=== PATIENT | female | born 1955 | race Caucasian/White ===

== ENCOUNTER 2021-03-30 13:30 | Outpatient (REF) | payer OTHER, SELFPAY ==
--- NOTE | ~2021-03-30 | MM_ITS ---
EXAMINATION: MM SCREENING DIGITAL BREAST TOMOSYNTHESIS, BILATERAL CLINICAL INFORMATION: Screening. Asymptomatic. The lifetime risk of breast cancer based on the Tyrer-Cuzick Model is 6%. COMPARISON: Mammography: 03/25/2020, 03/20/2019, 03/15/2018 TECHNIQUE: Digital breast tomosynthesis is performed in both the craniocaudal and mediolateral oblique views along with computer-aided detection (CAD). Synthesized 2D images are generated from the tomosynthesis. FINDINGS: There are scattered areas of fibroglandular density (ACR BI-RADS breast composition Category b). There are no significant masses, abnormal calcifications, or other abnormalities. There is biopsy clip marker mid 12:00 left breast. The axilla and skin contours are unremarkable. No significant changes. MM/MM tomosynthesis screening BI IMPRESSION: No mammographic evidence of malignancy. ASSESSMENT: BI-RADS 1: Negative RECOMMENDATION: Routine annual mammography screening. This patient's information was entered into a reminder system with a target due date for their next mammogram.
== END 2021-03-30 13:31 | disposition home or self-care (01) ==
LOC: HO.MAMMO 13:30
PROVIDERS: Visit Provider Internal Medicine
DX: Z12.31 Encounter for screening mammogram for malignant neoplasm of breast (principal)
CPT/HCPCS: 77063; 77067

== ENCOUNTER 2021-09-08 14:27 | Outpatient (REF) | payer OTHER, SELFPAY ==
[2021-09-08 14:48] LABS: IDNOW Serial# 9DD0AD1C
[2021-09-08 14:49] LABS: COVID-19 Test Positive (Negative)
== END 2021-09-08 14:28 | disposition home or self-care (01) ==
LOC: HO.LNP 14:27
PROVIDERS: Visit Provider Internal Medicine
DX: Z20.822 Contact with and (suspected) exposure to COVID-19 (principal)
CPT/HCPCS: 87635

== ENCOUNTER 2021-09-21 06:05 | Outpatient (REF) | payer OTHER, SELFPAY ==
--- NOTE | ~2021-09-21 | XR_ITS ---
EXAMINATION: XR CHEST CLINICAL INFORMATION: Cough. Status post COVID. Left chest wall pain. Question pneumonia. COMPARISON: Chest radiograph dated 02/23/2012. TECHNIQUE: 2 views of the chest were obtained. FINDINGS: The lungs are clear. The cardiomediastinal silhouette is normal in size. There is no pleural effusion or pneumothorax. No acute osseous abnormality. XR/XR chest 2V IMPRESSION: No acute cardiopulmonary findings.
[2021-09-21 06:42] LABS: MANUAL DIFF FLAG NO
[2021-09-21 07:19] LABS: Basophils Absolute Auto 0.1 X10*3/uL (0.0-0.2); Basophils Percent Auto 1.2 % (0-2); Eosinophils Absolute Auto 0.1 X10*3/uL (0.0-0.4); Eosinophils Percent Auto 1.7 % (0-4); Hematocrit 44.9 % (37.0-47.0); Hemoglobin 14.9 g/dl (12.0-16.0); Imm Gran Abs Auto 0.01 X10*3/uL (0.00-0.03); Imm Gran Pct Auto 0.2 % (0.0-0.4); Lymphocytes Absolute Auto 1.9 X10*3/uL (1.2-4.9); Lymphocytes Percent Auto 32.2 % (20-40); Mean Corpuscular HGB Conc 33.2 g/dl (31.0-35.0); Mean Corpuscular Hemoglobin 31.6 pg (27.0-33.0); Mean Corpuscular Volume 95.3 fL (80.0-98.0); Mean Platelet Volume 10.3 fL (9.4-12.3); Monocytes Absolute Auto 0.7 X10*3/uL (0.1-1.2); Monocytes Percent Auto 11.3 % (2-11); Neutrophils Absolute Auto 3.2 x10*3/uL (2.0-8.3); Neutrophils Percent Auto 53.4 % (45-73); Platelet Count 371 X10*3/uL (160-400); Red Blood Count 4.71 X10*6/uL (4.20-5.50); Red Cell Distribution Width 13.9 % (11.0-16.0)
[2021-09-21 07:39] LABS: Alanine Aminotransferase 58 U/L (0-31); Albumin Level 4.2 g/dL (3.5-5.0); Alkaline Phosphatase 79 U/L (39-117); Anion Gap 13 (12-20); Aspartate Amino Transferase 37 U/L (5-31); Bilirubin Total 0.5 mg/dL (0.0-1.0); Blood Urea Nitrogen 17 mg/dL (9-16); Calcium 9.7 mg/dL (8.4-10.2); Carbon Dioxide 22 mmol/L (22-29); Chloride 108 mmol/L (96-108); Cholesterol 246 mg/dL; Estimated Glomerular Filt Rate > 60; Glucose Random 93 mg/dL (60-115); HDL Cholesterol 52 mg/dL; LDL Cholesterol Calculated 161 mg/dl; Potassium 4.2 mmol/L (3.3-5.1); Sodium 139 mmol/L (135-145); Total Protein 7.4 g/dL (6.5-8.0); Triglycerides 165 mg/dL
== END 2021-09-21 06:06 | disposition home or self-care (01) ==
LOC: HO.LAB 06:05
PROVIDERS: PCP Internal Medicine; Visit Provider Internal Medicine
DX: R05.9 Cough, unspecified (principal); E78.00 Pure hypercholesterolemia, unspecified; R07.89 Other chest pain; Z86.16 Personal history of COVID-19
CPT/HCPCS: 36415; 71046; 80053; 80061; 85025; 86140

== ENCOUNTER 2021-10-28 08:22 | Outpatient (REF) | payer OTHER, SELFPAY ==
--- NOTE | ~2021-10-28 | MM_ITS ---
EXAMINATION: MM DIAGNOSTIC DIGITAL BREAST TOMOSYNTHESIS, LEFT US DIAGNOSTIC ULTRASOUND BREAST, LEFT CLINICAL INFORMATION: Burning pain upper outer left breast towards axilla since August. No discharge. The lifetime risk of breast cancer based on the Tyrer-Cuzick Model is 6%. COMPARISON: Mammography: 03/30/2021, 03/25/2020, 03/20/2019, 03/15/2018 TECHNIQUE: Digital breast tomosynthesis is performed in both the craniocaudal and mediolateral oblique views along with computer-aided detection (CAD). Synthesized 2D images are generated from the tomosynthesis. Ultrasound left breast is targeted to the 11:00 to 3:00 position as well as the axilla. Grayscale imaging and color Doppler are performed without and with harmonics. FINDINGS: There are scattered areas of fibroglandular density (ACR BI-RADS breast composition Category b). There are no significant masses, abnormal calcifications, or other abnormalities. Parenchymal pattern is similar to prior studies. There is no skin thickening or coarsening of the Benton's ligaments. No lymphadenopathy. There are no significant changes. Ultrasound demonstrates no cystic or solid mass or architectural abnormality. No focal duct ectasia. No skin thickening or edema tracking in soft tissue planes. No adenopathy. Results are discussed with the patient at time of visit. MM/MM tomosynthesis diagnostic LT IMPRESSION: No mammographic evidence of malignancy or inflammatory changes. Unremarkable left breast ultrasound. ASSESSMENT: BI-RADS 1: Negative RECOMMENDATION: 1. Patient's left breast pain should be managed based on the clinical impression. 2. Otherwise, routine annual screening mammography. This patient's information was entered into a reminder system with a target due date for their next mammogram.
== END 2021-10-28 08:23 | disposition home or self-care (01) ==
LOC: HO.MAMMO 08:22
PROVIDERS: Visit Provider Internal Medicine
DX: R92.2 Inconclusive mammogram (principal); N63.22 Unspecified lump in the left breast, upper inner quadrant; N63.25 Unspecified lump in the left breast, overlapping quadrants
CPT/HCPCS: 76642; 77061; 77065

== ENCOUNTER 2021-11-08 06:05 | Outpatient (REF) | payer OTHER, SELFPAY ==
[2021-11-08 06:18] LABS: MANUAL DIFF FLAG NO
[2021-11-08 06:28] LABS: Basophils Absolute Auto 0.1 X10*3/uL (0.0-0.2); Basophils Percent Auto 0.7 % (0-2); Eosinophils Absolute Auto 0.1 X10*3/uL (0.0-0.4); Eosinophils Percent Auto 1.7 % (0-4); Hematocrit 46.2 % (37.0-47.0); Hemoglobin 14.9 g/dl (12.0-16.0); Imm Gran Abs Auto 0.02 X10*3/uL (0.00-0.03); Imm Gran Pct Auto 0.3 % (0.0-0.4); Lymphocytes Absolute Auto 2.8 X10*3/uL (1.2-4.9); Lymphocytes Percent Auto 38.5 % (20-40); Mean Corpuscular HGB Conc 32.3 g/dl (31.0-35.0); Mean Corpuscular Hemoglobin 31.2 pg (27.0-33.0); Mean Corpuscular Volume 96.7 fL (80.0-98.0); Mean Platelet Volume 10.3 fL (9.4-12.3); Monocytes Absolute Auto 0.8 X10*3/uL (0.1-1.2); Monocytes Percent Auto 10.5 % (2-11); Neutrophils Absolute Auto 3.5 x10*3/uL (2.0-8.3); Neutrophils Percent Auto 48.3 % (45-73); Platelet Count 327 X10*3/uL (160-400); Red Blood Count 4.78 X10*6/uL (4.20-5.50); Red Cell Distribution Width 14.2 % (11.0-16.0); White Blood Count 7.1 X10*3/uL (4.8-10.8)
[2021-11-08 06:52] LABS: Alanine Aminotransferase 99 U/L (0-31); Albumin Level 4.1 g/dL (3.5-5.0); Alkaline Phosphatase 82 U/L (39-117); Anion Gap 11 (12-20); Aspartate Amino Transferase 73 U/L (5-31); Bilirubin Total 0.3 mg/dL (0.0-1.0); Blood Urea Nitrogen 17 mg/dL (9-16); Calcium 9.8 mg/dL (8.4-10.2); Carbon Dioxide 27 mmol/L (22-29); Chloride 107 mmol/L (96-108); Estimated Glomerular Filt Rate > 60; Glucose Random 101 mg/dL (60-115); Sodium 140 mmol/L (135-145); Total Protein 7.1 g/dL (6.5-8.0)
== END 2021-11-08 06:06 | disposition home or self-care (01) ==
LOC: HO.LAB 06:05
PROVIDERS: PCP Internal Medicine; Visit Provider Internal Medicine
DX: R07.9 Chest pain, unspecified (principal)
CPT/HCPCS: 36415; 80053; 85025

== ENCOUNTER 2021-11-10 08:49 | Outpatient (REF) | payer OTHER, SELFPAY ==
--- NOTE | ~2021-11-10 | MR_ITS ---
EXAMINATION: MR BREAST WITHOUT AND WITH CONTRAST, BILATERAL CLINICAL INFORMATION: History of left breast pain. Remote history of papilloma status post excision. COMPARISON: No previous breast MRI TECHNIQUE: Imaging was performed with a dedicated breast coil. Prior to the administration of contrast, bilateral axial T1 and bilateral axial T2 weighted sequences were obtained. After the uneventful administration of?7 mL of Gadavist, dynamic contrast-enhanced VIBRANT series through the breasts in the axial plane were performed. Subtracted images were performed and reviewed. A delayed sagittal sequence through both breasts was acquired. Additionally, CAD post-processing, including maximum intensity projections, 3-D reconstructions and kinetic analysis, were performed an independent workstation and reviewed by the interpreting radiologist is a portion of this exam. FINDINGS: The patient's fibroglandular tissue demonstrates minimal background enhancement. LEFT BREAST: Postsurgical scarring in the retroareolar region. No suspicious masslike or non-masslike enhancement. No abnormal skin thickening or nipple retraction. No abnormal architectural distortion. Review of the T2 weighted images demonstrates no fibrocystic changes or dilated ducts. Review of kinetic images reveals no additional findings. RIGHT BREAST: No suspicious masslike or non-masslike enhancement. No abnormal skin thickening or nipple retraction. No abnormal architectural distortion. Review of the T2 weighted images demonstrates no fibrocystic changes or dilated ducts. Review of kinetic images reveals no additional findings. There is no suspicious internal mammary chain or axillary adenopathy. Limited views of the chest and abdomen are unremarkable. MR/MR breast BI wo/w con IMPRESSION: No MR specific evidence of malignancy. Normal left axilla. No MRI explanation for left breast pain. ASSESSMENT: LEFT BREAST: BI-RADS 1-Negative RIGHT BREAST: BI-RADS 1-Negative RECOMMENDATIONS: Clinical follow-up.
== END 2021-11-10 08:50 | disposition home or self-care (01) ==
LOC: HO.MRI 08:49
PROVIDERS: PCP Internal Medicine; Visit Provider Internal Medicine
DX: D42.9 Neoplasm of uncertain behavior of meninges, unspecified (principal)
CPT/HCPCS: 77049; A9585

== ENCOUNTER 2021-11-14 09:33 | Outpatient (REF) | payer OTHER, SELFPAY ==
--- NOTE | ~2021-11-14 | US_ITS ---
EXAMINATION: US ABDOMEN COMPLETE CLINICAL INFORMATION: Elevated LFTs. COMPARISON: None TECHNIQUE: Real-time imaging of the abdominal viscera. FINDINGS: PANCREAS: Not well visualized. ABDOMINAL AORTA: The proximal, mid, and distal segments are normal in caliber. INFERIOR VENA CAVA: Not well visualized LIVER: Liver echotexture is slightly increased. The liver is normal in size. The liver contour is normal. No focal hepatic lesion. There is no intrahepatic biliary duct dilatation seen. GALLBLADDER: Normal. The gallbladder is physiologically distended without evidence of stones, sludge, polyps, wall thickening or pericholecystic fluid. COMMON BILE DUCT: Normal in caliber measuring 0.3 cm in diameter. RIGHT KIDNEY: Normal. No hydronephrosis. No renal calculi or focal parenchymal lesions. The kidney measures 9.2 cm in maximum dimension. LEFT KIDNEY: There is a 7 mm echogenic lesion in the lower pole. No hydronephrosis. No renal calculi or focal parenchymal lesions. The kidney measures 9.4 cm in maximum dimension. SPLEEN: Normal. The spleen measures 7.3 cm in maximum dimension. FREE FLUID: None. US/US abdomen complete IMPRESSION: Slightly echogenic liver. Limited visualization of the pancreas and IVC. 7 mm echogenic lesion in the left kidney. This may represent a benign angiomyolipoma. Follow-up CT or MRI of the kidney recommended for confirmation.
== END 2021-11-14 09:34 | disposition home or self-care (01) ==
LOC: HO.US 09:33
PROVIDERS: Visit Provider Internal Medicine
DX: R74.01 Elevation of levels of liver transaminase levels (principal)
CPT/HCPCS: 76700

== ENCOUNTER 2021-12-30 06:09 | Outpatient (REF) | payer OTHER, SELFPAY ==
[2021-12-30 08:12] LABS: Alanine Aminotransferase 57 U/L (0-31); Albumin Level 3.9 g/dL (3.5-5.0); Alkaline Phosphatase 85 U/L (39-117); Anion Gap 12 (12-20); Aspartate Amino Transferase 43 U/L (5-31); Bilirubin Total 0.3 mg/dL (0.0-1.0); Blood Urea Nitrogen 18 mg/dL (9-16); Calcium 9.5 mg/dL (8.4-10.2); Carbon Dioxide 25 mmol/L (22-29); Chloride 108 mmol/L (96-108); Estimated Glomerular Filt Rate > 60; Glucose Random 91 mg/dL (60-115); Iron 90 mcg/dL (30-160); Percent Iron Saturation 30 % (15-50); Potassium 4.6 mmol/L (3.3-5.1); Sodium 140 mmol/L (135-145); Total Iron Binding Capacity 297 mcg/dL (228-428); Unsaturated Iron Binding 207 ug/dL
[2021-12-30 08:13] LABS: HBS Num1 0.67 mIU/mL (0-7.99); ~HepC Num1 0.11 S/CO (0.00-0.79); ~Hepatitis B Surface Antibody NONREACTIVE (Nonreactive); ~Hepatitis C Antibody Nonreactive (Nonreactive)
[2021-12-30 08:14] LABS: Ferritin 365 ng/mL (10-250)
== END 2021-12-30 06:10 | disposition home or self-care (01) ==
LOC: HO.LAB 06:09
PROVIDERS: PCP Internal Medicine; Visit Provider Internal Medicine
DX: R79.89 Other specified abnormal findings of blood chemistry (principal); Z83.49 Family history of other endocrine, nutritional and metabolic diseases
CPT/HCPCS: 36415; 80053; 82728; 83540; 86706; 86803

== ENCOUNTER 2022-03-28 14:15 | Outpatient (REF) | payer OTHER, SELFPAY | END 2022-03-28 14:16 | disposition home or self-care (01) | LOC: HO.MAMMO 14:15 | PROVIDERS: Visit Provider Internal Medicine | DX: Z13.89 Encounter for screening for other disorder (principal) ==

== ENCOUNTER 2022-04-03 14:21 | Outpatient (REF) | payer OTHER, SELFPAY ==
--- NOTE | ~2022-04-03 | MM_ITS ---
EXAMINATION: MM SCREENING DIGITAL BREAST TOMOSYNTHESIS, BILATERAL CLINICAL INFORMATION: Screening. Asymptomatic. The lifetime risk of breast cancer based on the Tyrer-Cuzick Model is 6%. COMPARISON: Mammography: 10/28/2021, 03/30/2021, 03/25/2020, 03/20/2019; MR breasts 11/10/2021. TECHNIQUE: Digital breast tomosynthesis is performed in both the craniocaudal and mediolateral oblique views along with computer-aided detection (CAD). Synthesized 2D images are generated from the tomosynthesis. FINDINGS: There are scattered areas of fibroglandular density (ACR BI-RADS breast composition Category b). There are no significant masses, abnormal calcifications, or other abnormalities. Parenchymal pattern is similar to prior studies. There is a biopsy clip marker again seen mid 12:00 left breast. The axilla and skin contours are unremarkable. MM/MM tomosynthesis screening BI IMPRESSION: No mammographic evidence of malignancy. ASSESSMENT: BI-RADS 1: Negative RECOMMENDATION: Routine annual mammography screening. This patient's information was entered into a reminder system with a target due date for their next mammogram.
== END 2022-04-03 14:22 | disposition home or self-care (01) ==
LOC: HO.MAMMO 14:21
PROVIDERS: PCP Internal Medicine; Visit Provider Internal Medicine
DX: Z12.31 Encounter for screening mammogram for malignant neoplasm of breast (principal)
CPT/HCPCS: 77063; 77067

== ENCOUNTER 2023-03-20 12:41 | Outpatient (REF) | payer MEDICARE, SELFPAY ==
[2023-03-20 13:19] LABS: MANUAL DIFF FLAG NO
[2023-03-20 13:27] LABS: Basophils Absolute Auto 0.1 X10*3/uL (0.0-0.2); Basophils Percent Auto 1.1 % (0-2); Eosinophils Percent Auto 0.6 % (0-4); Hematocrit 46.1 % (37.0-47.0); Hemoglobin 15.3 g/dl (12.0-16.0); Imm Gran Abs Auto 0.01 X10*3/uL (0.00-0.03); Imm Gran Pct Auto 0.2 % (0.0-0.4); Lymphocytes Absolute Auto 2.2 X10*3/uL (1.2-4.9); Lymphocytes Percent Auto 34.5 % (20-40); Mean Corpuscular HGB Conc 33.2 g/dl (31.0-35.0); Mean Corpuscular Hemoglobin 31.1 pg (27.0-33.0); Mean Corpuscular Volume 93.7 fL (80.0-98.0); Mean Platelet Volume 10.3 fL (9.4-12.3); Monocytes Absolute Auto 0.6 X10*3/uL (0.1-1.2); Monocytes Percent Auto 9.8 % (2-11); Neutrophils Absolute Auto 3.5 x10*3/uL (2.0-8.3); Neutrophils Percent Auto 53.8 % (45-73); Platelet Count 304 X10*3/uL (160-400); Red Blood Count 4.92 X10*6/uL (4.20-5.50); Red Cell Distribution Width 13.4 % (11.0-16.0); White Blood Count 6.4 X10*3/uL (4.8-10.8)
[2023-03-20 14:20] LABS: Alanine Aminotransferase 25 U/L (0-31); Alkaline Phosphatase 82 U/L (39-117); Anion Gap 8 (12-20); Aspartate Amino Transferase 22 U/L (5-31); Bilirubin Total 0.3 mg/dL (0.0-1.0); Blood Urea Nitrogen 17 mg/dL (9-16); C Reactive Protein < 0.10 mg/dL (< or = 0.50); Calcium 9.4 mg/dL (8.4-10.2); Carbon Dioxide 29 mmol/L (22-29); Chloride 106 mmol/L (96-108); Estimated Glomerular Filt Rate > 60; Ferritin 360 ng/mL (10-250); Glucose Random 107 mg/dL (60-115); Iron 98 mcg/dL (30-160); Percent Iron Saturation 37 % (15-50); Potassium 4.2 mmol/L (3.3-5.1); Sodium 139 mmol/L (135-145); Total Iron Binding Capacity 262 mcg/dL (228-428); Total Protein 7.6 g/dL (6.5-8.0); Unsaturated Iron Binding 164 ug/dL
== END 2023-03-20 12:42 | disposition home or self-care (01) ==
LOC: HO.10HDL 12:41
PROVIDERS: Visit Provider Internal Medicine
DX: R21 Rash and other nonspecific skin eruption (principal); R79.89 Other specified abnormal findings of blood chemistry; Z83.49 Family history of other endocrine, nutritional and metabolic diseases
CPT/HCPCS: 36415; 80053; 82728; 83540; 85025; 86140

== ENCOUNTER 2023-04-05 12:46 | Outpatient (REF) | payer MEDICARE, SELFPAY ==
--- NOTE | ~2023-04-05 | MM_ITS ---
EXAMINATION: MM SCREENING DIGITAL BREAST TOMOSYNTHESIS, BILATERAL CLINICAL INFORMATION: Screening. Asymptomatic. COMPARISON: Mammography: This study is compared with prior exams dating back to 2019. TECHNIQUE: Digital breast tomosynthesis is performed in both the craniocaudal and mediolateral oblique views along with computer-aided detection (CAD). Synthesized 2D images are generated from the tomosynthesis. FINDINGS: There are scattered areas of fibroglandular density (ACR BI-RADS breast composition Category b). There are no significant masses, abnormal calcifications, or other abnormalities. There is tissue marker in the superior aspect of the left breast from prior benign stereotactic biopsy. MM/MM tomosynthesis screening BI IMPRESSION: No mammographic evidence of malignancy. ASSESSMENT: BI-RADS BI-RADS 2 - Benign Findings RECOMMENDATION: Routine annual mammography screening. 1 year F/U This examination should not preclude the clinical evaluation of a suspicious palpable abnormality. This patient's information was entered into a reminder system with a target due date for their next mammogram.
== END 2023-04-05 12:47 | disposition home or self-care (01) ==
LOC: HO.MAMMO 12:46
PROVIDERS: PCP Internal Medicine; Visit Provider Internal Medicine
DX: Z12.31 Encounter for screening mammogram for malignant neoplasm of breast (principal)
CPT/HCPCS: 77063; 77067

== ENCOUNTER → 2023-04-05 13:00 | Outpatient (BNV) | payer MEDICARE, SELFPAY | PROVIDERS: PCP Internal Medicine; Visit Provider Radiology Diagnostic Radiology | DX: Z12.31 Encounter for screening mammogram for malignant neoplasm of breast (principal) | CPT/HCPCS: 77063; 77067 ==

== ENCOUNTER 2024-04-10 12:40 | Outpatient (REF) | payer MEDICARE, SELFPAY ==
--- NOTE | ~2024-04-10 | MM_ITS ---
EXAMINATION: MM SCREENING DIGITAL BREAST TOMOSYNTHESIS, BILATERAL CLINICAL INFORMATION: Screening. Asymptomatic. COMPARISON: Mammography: This study is compared with prior exams dating back to 2019. TECHNIQUE: Digital breast tomosynthesis is performed in both the craniocaudal and mediolateral oblique views along with computer-aided detection (CAD). Synthesized 2D images are generated from the tomosynthesis. FINDINGS: There are scattered areas of fibroglandular density (ACR BI-RADS breast composition Category b). There are no significant masses, abnormal calcifications, or other abnormalities. There is a tissue marker and superior aspect the left breast from prior benign biopsy. MM/MM tomosynthesis screening BI IMPRESSION: No mammographic evidence of malignancy. ASSESSMENT: BI-RADS BI-RADS 2 - Benign Findings RECOMMENDATION: Routine annual mammography screening. 1 year F/U This examination should not preclude the clinical evaluation of a suspicious palpable abnormality. This patient's information was entered into a reminder system with a target due date for their next mammogram. Electronically signed by: Key Carrillo MD 05/10/2024 02:46 PM EDT
== END 2024-04-10 12:41 | disposition home or self-care (01) ==
LOC: HO.MAMMO 12:40
PROVIDERS: PCP Internal Medicine; Visit Provider Internal Medicine
DX: Z12.31 Encounter for screening mammogram for malignant neoplasm of breast (principal)
CPT/HCPCS: 77063; 77067

== ENCOUNTER → 2024-04-10 13:00 | Outpatient (BNV) | payer MEDICARE, SELFPAY | PROVIDERS: PCP Internal Medicine; Visit Provider Radiology Diagnostic Radiology | DX: Z12.31 Encounter for screening mammogram for malignant neoplasm of breast (principal) | CPT/HCPCS: 77063; 77067 ==

== ENCOUNTER 2024-06-24 14:36 | Outpatient (REF) | payer MEDICARE, SELFPAY ==
[2024-06-29 06:13] LABS: HPV mRNA E6/E7 Not Detected (Not Detected)
== END 2024-06-24 14:37 | disposition home or self-care (01) ==
LOC: HO.LNP 14:36
PROVIDERS: PCP Internal Medicine; Visit Provider Advanced Practice Midwife
DX: Z01.419 Encounter for gynecological examination (general) (routine) without abnormal findings (principal); N95.1 Menopausal and female climacteric states; N95.2 Postmenopausal atrophic vaginitis
CPT/HCPCS: 87624; 88175; 99387

== ENCOUNTER 2024-06-24 14:36 | Outpatient (AMB) | payer MEDICARE, SELFPAY ==
[2024-06-24 14:44] VITALS: BMI 29.1
--- NOTE | 2024-06-24 14:44 | A.OFFVIS_ITS ---
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 She is doing well with concerns. History of left sided pain radiating to the pelvis with lifting, since resolved with resting. Attempting to eat a healthy diet with multivitamins, and stays active with exercise-yardwork. Currently occasionally sexually active, reports vaginal dryness, pain, spotting with prior intimacy. STI testing offered; she declines. Last pap smear; 2017. Normal Pap history. Last mammogram; 2023. History left breast papilloma removed. Colonoscopy is UTD. Denies any family history of breast, ovarian or colon cancer. [facility] Medical History (Updated 06/24/24 @ 15:32 by Radha Taylor CNM) Vaginal atrophy Fatty liver Surgical History H/O breast surgery Family History Mother Adopted Social History Alcohol intake: never Patient Tobacco Use Status: Never used Tobacco Sexually active: No Female Reproductive History Menstrual Menopause type: natural Total pregnancies: 2 Full term: 2 Number of Living Children: 2 Date of last pap smear: 03/26/18 (neg pap and hpv) History of abnormal pap smear: Yes (03/12 ascus) Date of Mammogram: 04/10/24 (Birad 2) Review of Systems Const All systems reviewed & are unremarkable except as noted in HPI and below Reports as per HPI Eyes Reports no additional complaints ENT Reports no additional complaints Card Reports no additional complaints Resp Reports no additional complaints GI Reports as per HPI and Reports no additional complaints Reports as per HPI Musc Reports no additional complaints Skin/Breast Reports as per HPI Neuro Reports no additional complaints Psych Reports no additional complaints Endo Reports no additional complaints Pankaj/Lymph Reports no additional complaints Aller/Immun Reports no additional complaints Physical Exam Vital Signs: BMI result Body Mass Index 29.1 Const General: cooperative, healthy appearing, no acute distress, well developed and alert Orientation/consciousness: patient oriented x3 HEENT Head: Yes normal to inspection Eyes General: appearance normal, both eyes and all related structures Neck Neck: Yes normal visual inspection Thyroid: Thyroid normal Chest Other: Scar left areola Chest palpation & inspection: normal inspection of the chest and other (no puckering, dimpling, peau de orange, retraction, discharge, masses) Breast/axilla inspection: normal inspection of the breasts Breast/axilla palpation: normal palpation of the breasts Resp Effort & Inspection: normal respiratory effort GI Inspection: Yes normal to inspection Palpation (GI): Soft to palpation Rectal Exam - Female: deferred General: Yes bladder normal to palpation External Female Exam: normal external appearance and normal appearance of the urethra Speculum Exam - Vagina: normal palpation and vagina atrophic (Moderate) Speculum Exam - Cervix: normal palpation and Other cervical findings present (Prominent anterior surface, appears likes post surgical, bled w/pap) Bimanual exam- vagina & uterus: normal bimanual exam, normal palpation, uterine size normal, bladder normal to palpation, normal palpation and non-tender Bimanual Exam- Adnexa, other: no masses Skin General skin exam: no rashes or lesions noted Rashes: no rashes Neuro General: patient oriented x3 Cognition (Neuro): normal cognition Extrem General: Yes normal to inspection Psych Attitude: cooperative Thought process: Normal thought process present Assessment & Plan Assessment & Plan (1) Encounter for well woman exam with routine gynecological exam: Code(s): Z01.419 - Encounter for gynecological examination (general) (routine) without abnormal findings Category: Medical (2) Menopausal state: Code(s): N95.1 - Menopausal and female climacteric states Category: Medical (3) Vaginal atrophy: Code(s): N95.2 - Postmenopausal atrophic vaginitis Category: Medical Plan Discussed: Current recommendations for pap smears per ASCCP guidelines. Pap screening completed. Breast awareness, periodic self breast exams and yearly mammogram. Maintain a healthy lifestyle, well balanced diet including Calcium 1,200 mg and Vitamin D 600 IU daily, and routine exercise. Menopausal.org handout given on HRT, discuss vaginal atrophy in effects with dyspareunia, vaginal dryness, pain, spotting. Initiate treatment with Replens moisturizer reviewed use. The role vaginal estrogen-she prefers nonhormonal treatment therapy at this point. Contact the office with any postmenopausal bleeding. DEXA scan ordered. Patient verbalizes understanding and agrees to the plan of care. She was given opportunity to ask questions and all questions were answered to the best of my ability. RTO in 1 year for annual building code inspector exam. This note is constructed using voice recognition software. While every effort has been made to ensure accuracy, advisory internship errors may have been included. Orders: Orders PAP + HPV E6/E7 rfx 18/45 Today Z01.419 - Encounter for gynecological examination (general) (routine) without abnormal findings XR DEXA axial skeleton Today N95.1 - Menopausal and female climacteric states Coding Level of Care Code New Pt Prev Care >65yr (46629) Diagnoses Encounter for well woman exam with routine gynecological exam Z01.419 Menopausal state N95.1 Vaginal atrophy N95.2
== END 2024-06-24 15:58 | disposition home or self-care (01) ==
LOC: HO.HWS 14:37
PROVIDERS: PCP Internal Medicine; Visit Provider Advanced Practice Midwife
DX: Z01.419 Encounter for gynecological examination (general) (routine) without abnormal findings (principal); N95.1 Menopausal and female climacteric states; N95.2 Postmenopausal atrophic vaginitis
CPT/HCPCS: 99387

== ENCOUNTER 2024-07-22 13:17 | Outpatient (REF) | payer MEDICARE, SELFPAY ==
--- NOTE | ~2024-07-22 | MM_ITS ---
EXAMINATION: BONE DENSITOMETRY CLINICAL INDICATION: Menopausal and female climacteric states. COMPARISON: Baseline BD dated 11/07/2012. TECHNIQUE: Using a [employer] DXA System (software version: 13.1) manufactured by [employer], dual-energy x-ray absorptiometry was performed of the lumbar spine and left hip. The images are of good technical quality. Summary results are attached. FINDINGS: LEFT FEMUR, NECK: Current: BMD 0.982 g/cm2, Z-score 1.1, T-score -0.4, normal. Baseline: BMD 1.069 g/cm2. LEFT FEMUR, TOTAL: Current: BMD 1.016 g/cm2, Z-score 1.3, T-score 0.1, normal, 11.0% decrease from baseline (<5% change is not significant). Baseline: BMD 1.141 g/cm2. AP SPINE L3-L4 (excluding L1 and L2): The data of L1-L4 has been changed to exclude the L1 and L2 vertebral bodies, because degenerative sclerosis at these levels may cause overestimation of lumbar spine density. Current: BMD 1.005 g/cm2, Z-score 0.0, T-score -1.6, osteopenia, 15.3% decrease from baseline (<5% change is not significant). Baseline: BMD 1.187 g/cm2. IDENTIFIED RISK FACTORS: Menopause, history of fracture (adult), secondary osteoporosis (chronic liver disease), anticonvulsants. HISTORY OF FRACTURE: Other. MEDICATIONS: Calcium. MM/XR DEXA axial skeleton IMPRESSION: 1. DIAGNOSIS: Osteopenia based on the lowest T-score value of -1.6 in the lumbar spine applying World Health Organization criteria. 2. 10-YEAR FRACTURE RISK PREDICTION, FRAX: Major osteoporotic fracture (clinical spine, forearm, hip or shoulder) 12.1%. Hip fracture 0.6%. 3. Treatment Recommendations: NOF guidelines recommend consideration for treatment in postmenopausal women and men age 50 and older presenting with the following: -A hip or vertebral (clinical or morphometric) fracture. -T-score less than or equal to -2.5 at the femoral neck or spine after appropriate evaluation to exclude secondary causes. -Low bone mass at the hip or spine and a 10-year fracture probability by FRAX of greater than or equal to 3% for hip fracture or greater than or equal to 20% for major osteoporotic fracture based on the [place] adapted WHO algorithm. 4. Other Recommendations: All treatment decisions require clinical judgment and consideration of individual patient factors, including patient preferences, comorbidities, previous drug use, risk factors not captured in the FRAX model (e.g. frailty, falls, vitamin D deficiency, increased bone turnover, interval significant decline in bone density) and possible under or overestimation of fracture risk by FRAX. Additional medical evaluation for secondary cause of low bone mineral density may be appropriate. FUTURE SCAN RECOMMENDATION: People with diagnosed cases of osteoporosis or at high risk for fracture should have regular bone mineral density tests. For patients eligible for Medicare, routine testing is allowed once every 2 years. The testing frequency can be increased to one year for patients who have rapidly progressing disease, those who are receiving or discontinuing medical therapy to restore bone mass, or have additional risk factors. Electronically signed by: Marco Antonio Lloyd MD 07/28/2024 08:14 PM TORIBIO TEMPLE
== END 2024-07-22 13:18 | disposition home or self-care (01) ==
LOC: HO.MAMMO 13:17
PROVIDERS: PCP Internal Medicine; Visit Provider Advanced Practice Midwife
DX: Z13.820 Encounter for screening for osteoporosis (principal); N95.1 Menopausal and female climacteric states
CPT/HCPCS: 77080

== ENCOUNTER 2024-12-29 15:10 | Outpatient (AMB) | payer MEDICARE, SELFPAY ==
[2024-12-29 15:13] VITALS: BP 120/74; PULSE 61; RESP 15; TEMP 36.3; O2SAT 99; BMI 29.9
--- NOTE | 2024-12-29 15:13 | MHC.PC.OV ---
Vital Signs 12/29/24 15:13 Height 5 ft Weight 69.4 kg BMI 29.9 BP 120/74 Respiration 15 Pulse 61 Pulse Source Pulse Oximeter Temp 97.4 F Temp Source Oral Pulse Oximetry (%) 99 Oxygen Delivery Method Room Air Intake Visit Reasons: Inflammation Technician Required: No Accompanied by: Self / Same As Patient Allergies dog dander Allergy (Unknown, Verified 12/29/24 15:14) Unknown horse dander Allergy (Unknown, Verified 12/29/24 15:14) Unknown mold Allergy (Unknown, Uncoded 06/24/24 14:50) Unknown Tobacco use date assessed: 12/29/24 Fall risk assessment: No Falls in past year Last assessed Fall Risk: 12/29/24 Dental Screening Dental Screen Date: 12/29/24 Did you have a dental visit in the last 12 months?: Yes Did you have a dental problem in the last 6 months where you did not have access to dental care?: No Was dental information given to patient?: Patient has dentist HPI HPI Comments History of Present Illness Details History of Present Illness The patient is a 69-year-old female presenting with persistent left-sided thoracic pain and burning sensation. The symptoms started six weeks ago and are reminiscent of a previous episode diagnosed as possible costochondritis vs internal shingles. During that time, internal shingles was also considered, and treatment with gabapentin was initiated to some effect. The current presentation involves pain primarily affecting the left side, with a burning sensation following a band-like pattern under the breast in dermatomal distributation affecting the left side only. The pain worsened upon physical activities, including sitting or carrying loads; however, there is a lack of any observable rash, and the pain persists without significant relief through positional changes or activity modifications. Despite undergoing vaccination for shingles nearly two years ago, the patient cites no history of shingles. Pain severity is around 6 out of 10 and aggravates during daily activities despite any notable breathing or sensory deficits. 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 Further imaging was advised Review of Systems - Musculoskeletal: Reports left-sided rib pain. - Neurological: Reports burning discomfort, denies numbness or tingling. - Respiratory: Denies shortness of breath. - Dermatological: Denies rash. Vital Signs reviewed Health Maintenance - Shingles vaccine received approximately two years ago. - Recommended follow-up imaging for left kidney observation. Physical Exam Constitutional: Awake and alert, no apparent distress Heart: RRR, S1S2, no murmurs, no edema Lungs: CTA bilaterally, no wheezing, occasional sharp pain not necessarily when taking a deep breath Extremities: No calf tenderness, yesterday arm was a little bit sore Skin: Warm and dry, no rash observed Neuro: Alert and oriented x 3, no numbness or tingling in hands or feet, tenderness noted in the rib area on the left side Assessment and Plan 1. Intercostal neuralgia Etiology unclear. Possible internal shingles recurrence though less likely give shingles vaccine. However, in the past had good response to gabapentin. Gabapentin at low-dose titration will resume. Use of analgesics NSAIDs/acetaminophen is advised, mindful of liver concerns. Continuing assessment for management efficacy is paramount. 2. Fatty Liver Ensure cautious use of analgesics given hepatic status, promote monitoring of liver functions. 4. Left Kidney Observation CT imaging is planned for assessment and characterization of the previously observed anomaly, informing additional directives as needed. Patient was informed and verbally consented to the use of an ambient scribe for clinic note documentation during this visit. Discussion Notes Continuity in gabapentin therapy for thoracic pain rests on historical control. The possibility of postherpetic neuralgia merits sustained gabapentin with lack of rash verified. Given hepatic limitations, medication tolerance must be a core factor. Recent kidney observation necessitates clarity; hence a CT is prioritized. Patient consent for imaging was obtained, with symptom-focused guidance rendered. Patient Instructions - Continue taking gabapentin as prescribed. - Use Tylenol or Aleve in moderation for pain relief. - Schedule a CT scan for kidney evaluation. - Monitor for new symptoms like rash or fever. - Avoid heavy lifting and strenuous activities. - Follow up in six weeks or sooner if symptoms worsen. - Rest as needed to manage pain. REPLACED BY [facility] Medical History (Updated 12/30/24 @ 09:24 by RENA Gamboa) Vaginal atrophy Fatty liver Surgical History H/O breast surgery Family History (Updated 12/29/24 @ 15:40 by BENITO Miranda) Mother Adopted Father Bladder cancer Hemochromatosis Social History (Reviewed 12/29/24 @ 15:14 by CHENTE Bhatt Housing: House Alcohol intake: never Patient Tobacco Use Status: Former Tobacco user e-Cigarette/Vaping Use: Never Used service: No Current occupational status: retired Cognitive needs: No Hearing needs: No Vision needs: Yes (Rx glasses) Questionnaire PHQ-9 Over the last 2 weeks, how often have you been bothered by any of the following problems? 1. Little interest or pleasure in doing things: not at all 2. Feeling down, depressed, or hopeless: not at all 3. Trouble falling or staying asleep, or sleeping too much: not at all 4. Feeling tired or having little energy: not at all 5. Poor appetite or overeating: not at all 6. Feeling bad about yourself - or that you are a failure or have let yourself or your family down: not at all 7. Trouble concentrating on things, such as reading the newspaper or watching television: not at all 8. Moving or speaking so slowly that other people could have noticed. Or the opposite - being so fidgety or restless that you have been moving around a lot more than usual: not at all 9. Thoughts that you would be better off or of hurting yourself in some way: not at all Total score: 0 Source: Developed by Drs. Jay Avila, Juanis Alamo, Cole Henderson and colleagues, with an educational jaki from [employer]. Thrive Questionnaire Date Thrive assessed: 12/29/24 I am a: Patient Within the past 12 months, did the food you bought not last and you didn't have the money to get more?: Never true Within the past 12 months, did you worry whether your food would run out before you got money to buy more?: Never true Do you have trouble paying for medicines?: No Do you have trouble getting transportation to medical appointments?: No Do you have trouble paying your heating and electricity bill?: No Do you have trouble taking care of your child, family member or friend?: No Do you have trouble with day-to-day activities such as bathing, preparing meals, shopping, managing finances, etc.?: No Are you currently unemployed and looking for a job?: No Are you interested in more education?: No THRIVE Score: 0 AUDIT C Alcohol Use Questionnaire (AUDIT-C) 1. How often do you have a drink containing alcohol?: Never 3. How often do you have six or more drinks on one occasion?: Never Total Score: 0 KACY-7 AMB Questionnaire KACY-7 Date KACY - 7 assessed: 12/29/24 Feeling nervous, anxious, or on edge: 0 = Not at all Not being able to stop or control worryin = Not at all Worrying too much about different things: 0 = Not at all Trouble relaxin = Not at all Being so restless that it is hard to sit still: 0 = Not at all Becoming easily annoyed or irritable: 0 = Not at all Feeling afraid as if something awful might happen: 0 = Not at all Total KACY-7 score (0-4 normal; 5-9 mild; 10-14 moderate; 15-21 severe): 0 Source: Developed by Drs. Jay Avila, Juanis Alamo, Cole Henderson and colleagues, with an educational jaki from [employer]. Physical exam (Primary Care) Vital Signs: Last Vital Signs Temp 97.4 F 12/29/24 15:13 Pulse 61 12/29/24 15:13 Resp 15 12/29/24 15:13 BP 120/74 12/29/24 15:13 Pulse Ox 99 12/29/24 15:13 Oxygen Delivery Method Room Air 12/29/24 15:13 BMI result Body Mass Index 29.9 Tobacco/Smoking Status: Tobacco use Status Tobacco use date assessed 12/29/24 12/29/24 15:15 Patient Tobacco Use Status Former Tobacco user 12/29/24 15:43 e-Cigarette/Vaping Use Never Used 12/29/24 15:15 PHQ-9: PHQ-9 Score PHQ-9: Total score 0 12/30/24 09:27 Thrive Assessment: Date of Thrive Assessment Date Thrive assessed 12/29/24 12/29/24 15:15 Coding Level of Care Code New Pt Level 4 (21992) Complex EM visit Add On G2211 Diagnoses Intercostal neuralgia G58.8 Fatty liver K76.0 Lesion of left [place] kidney N28.9 Assessment & Plan Assessment & Plan (1) Intercostal neuralgia: Code(s): G58.8 - Other specified mononeuropathies Category: Medical Plan: Gabapentin ordered with titration as above. Monitor for symptoms improvement (2) Fatty liver: Code(s): K76.0 - Fatty (change of) liver, not elsewhere classified Category: Medical Plan: Liver panel ordered. (3) Lesion of left [place] kidney: Code(s): N28.9 - Disorder of kidney and ureter, unspecified Category: Medical Plan: Seen on abd U/s 10/[address] up [address] abd/pelvis ordered Plan Follow up 4 weeks. Screening labs ordered Orders: Orders Complete Blood Count Auto Diff 12/29/24 K76.0 - Fatty (change of) liver, not elsewhere classified, Z13.1 - Encounter for screening for diabetes mellitus, Z13.220 - Encounter for screening for lipoid disorders Hemoglobin A1c 12/29/24 K76.0 - Fatty (change of) liver, not elsewhere classified, Z13.1 - Encounter for screening for diabetes mellitus, Z13.220 - Encounter for screening for lipoid disorders Liver Panel 12/29/24 K76.0 - Fatty (change of) liver, not elsewhere classified, Z13.1 - Encounter for screening for diabetes mellitus, Z13.220 - Encounter for screening for lipoid disorders Lipid Panel 12/29/24 K76.0 - Fatty (change of) liver, not elsewhere classified, Z13.1 - Encounter for screening for diabetes mellitus, Z13.220 - Encounter for screening for lipoid disorders Basic Metabolic Panel 12/29/24 K76.0 - Fatty (change of) liver, not elsewhere classified, Z13.1 - Encounter for screening for diabetes mellitus, Z13.220 - Encounter for screening for lipoid disorders CT abdomen pelvis wo IV con 12/29/24 N28.9 - Disorder of kidney and ureter, unspecified TSH reflex Free T4 12/29/24 K76.0 - Fatty (change of) liver, not elsewhere classified, Z13.1 - Encounter for screening for diabetes mellitus, Z13.220 - Encounter for screening for lipoid disorders Medications: New gabapentin 100 mg PO TID 90 caps 0RF
== END 2024-12-29 16:20 | disposition home or self-care (01) ==
LOC: HO.HMCHD 15:11
PROVIDERS: PCP Internal Medicine; Visit Provider Physician Assistant
DX: G58.8 Other specified mononeuropathies (principal); K76.0 Fatty (change of) liver, not elsewhere classified; N28.9 Disorder of kidney and ureter, unspecified

== ENCOUNTER → 2024-12-29 15:10 | Outpatient (BNVA) | payer MEDICARE, SELFPAY | PROVIDERS: PCP Internal Medicine; Visit Provider Physician Assistant | DX: K76.0 Fatty (change of) liver, not elsewhere classified (principal); G58.8 Other specified mononeuropathies; N28.9 Disorder of kidney and ureter, unspecified | CPT/HCPCS: 99202 ==

== ENCOUNTER 2024-12-31 08:02 | Outpatient (REF) | payer MEDICARE, SELFPAY ==
[2024-12-31 09:52] LABS: MANUAL DIFF FLAG NO
[2024-12-31 10:19] LABS: Basophils Absolute Auto 0.1 X10*3/uL (0.0-0.2); Basophils Percent Auto 1.2 % (0-2); Eosinophils Absolute Auto 0.1 X10*3/uL (0.0-0.4); Hematocrit 44.5 % (37.0-47.0); Hemoglobin 15.1 g/dl (12.0-16.0); Imm Gran Abs Auto 0.01 X10*3/uL (0.00-0.03); Imm Gran Pct Auto 0.2 % (0.0-0.4); Lymphocytes Absolute Auto 2.4 X10*3/uL (1.2-4.9); Lymphocytes Percent Auto 42.9 % (20-40); Mean Corpuscular HGB Conc 33.9 g/dl (31.0-35.0); Mean Corpuscular Hemoglobin 31.2 pg (27.0-33.0); Mean Corpuscular Volume 91.9 fL (80.0-98.0); Mean Platelet Volume 10.7 fL (9.4-12.3); Monocytes Absolute Auto 0.5 X10*3/uL (0.1-1.2); Monocytes Percent Auto 8.9 % (2-11); Neutrophils Absolute Auto 2.5 x10*3/uL (2.0-8.3); Neutrophils Percent Auto 44.8 % (45-73); Platelet Count 307 X10*3/uL (160-400); Red Blood Count 4.84 X10*6/uL (4.20-5.50); Red Cell Distribution Width 14.2 % (11.0-16.0); White Blood Count 5.6 X10*3/uL (4.8-10.8)
[2024-12-31 10:25] LABS: Estimated Average Glucose 108 mg/dL; Hemoglobin A1C 139.2081 umol/L; Hemoglobin A1c % 5.4 % (<6.0); Total Hemoglobin (HGBA1C) 3865.5697 umol/L
[2024-12-31 10:30] LABS: Alanine Aminotransferase 30 U/L (0-31); Alkaline Phosphatase 72 U/L (39-117); Anion Gap 11 (12-20); Aspartate Amino Transferase 28 U/L (5-31); Bilirubin Direct 0.1 mg/dL (0.0-0.5); Bilirubin Total 0.3 mg/dL (0.0-1.0); Blood Urea Nitrogen 20 mg/dL (9-16); Calcium 8.7 mg/dL (8.4-10.2); Carbon Dioxide 25 mmol/L (22-29); Chloride 108 mmol/L (96-108); Cholesterol 200 mg/dL (<200); Estimated Glomerular Filt Rate > 60; Glucose Random 109 mg/dL (60-115); HDL Cholesterol 58 mg/dL (>40); LDL Cholesterol Calculated 118 mg/dL (<100); Potassium 4.1 mmol/L (3.3-5.1); Sodium 140 mmol/L (135-145); Triglycerides 122 mg/dL (<150)
[2024-12-31 10:46] LABS: TSH reflex Free T4 4.18 uIU/mL (0.32-4.0)
[2024-12-31 11:25] LABS: Free T4 (Free Thyroxine) 1.04 ng/dL (0.71-1.85)
== END 2024-12-31 08:03 | disposition home or self-care (01) ==
LOC: HO.10HDL 08:02
PROVIDERS: Visit Provider Physician Assistant
DX: K76.0 Fatty (change of) liver, not elsewhere classified (principal); Z13.1 Encounter for screening for diabetes mellitus; Z13.220 Encounter for screening for lipoid disorders
CPT/HCPCS: 36415; 80048; 80061; 80076; 83036; 84439; 84443; 85025

== ENCOUNTER 2025-01-04 16:16 | Emergency (ER) | payer MEDICARE, SELFPAY ==
--- NOTE | ~2025-01-04 | XR_ITS ---
CLINICAL HISTORY: cp 2 view chest x-ray. Comparison: None Findings: Heart size normal No acute fracture. Impression: Lungs are clear. This document has been electronically signed by: Han Katz MD on 01/04/2025 17:48:54
--- NOTE | 2025-01-04 16:22 | ECG_ITS ---
Test Reason : CP Blood Pressure : */* mmHG Vent. Rate : 66 BPM Atrial Rate : 66 BPM P-R Int : 156 ms QRS Dur : 100 ms QT Int : 422 ms P-R-T Axes : 52 1 -4 degrees QTcB Int : 442 ms Normal sinus rhythm Incomplete right bundle branch block Borderline ECG No previous ECGs available Referred By: Generic ED Physician Electronically Signed By: SHAWNEE IGNACIO MD
[2025-01-04 16:29] VITALS: BP 143/86; PULSE 70; RESP 19; TEMP 36.6; O2SAT 98; BMI 29.3
--- NOTE | 2025-01-04 16:40 | ED.CHESTPAIN ---
HPI - Chest Pain General Chief Complaint: Chest Pain Stated Complaint: back pain into chest pain Time Seen by Provider: 01/04/25 18:03 Source: patient and RN notes reviewed Mode of arrival: ambulatory Limitations: no limitations History of Present Illness ED Provider: Hayley KOWALSKI narrative: 69-year-old female presents for evaluation of left upper back pain that radiates around to her chest. She reports that her symptoms started a month and a half ago. she reports that she has been diagnosed with costochondritis in the past and this feels similar she has not noticed any improvement with Aleve or Tylenol. the patient's saw her primary provider last week and was started on gabapentin she reports that she did take this a few years ago when she was previously diagnosed with costochondritis and it did help her symptoms her PCP felt the patient may have intercostal neuralgia the patient denies any fevers, chills, cough. No rashes noted. She presents to the ER today she admits dental chest pain and palpitations Related Data Previous Rx's ?Medication ?Instructions ?Recorded gabapentin 100 mg capsule 100 mg PO TID #90 caps 12/29/24 Allergies Allergy/AdvReac Type Severity Reaction Status Date / Time dog dander Allergy Unknown Unknown Verified 01/04/25 16:31 horse dander Allergy Unknown Unknown Verified 01/04/25 16:31 mold Allergy Unknown Unknown Uncoded 01/04/25 16:31 Review of Systems Constitutional: Constitutional: Denies body ache(s), Denies chills, Denies fever(s) and Denies headache(s) Eyes: Eyes: Denies blurry vision ENT: Denies vertigo, Denies dizziness and Denies headache(s) Cardiovascular: Cardiovascular: Reports chest pain and Denies dyspnea Respiratory: Respiratory: Denies cough and Denies dyspnea Gastrointestinal: Gastrointestinal: Denies abdominal pain, Denies nausea and Denies vomiting Musculoskeletal: Musculoskeletal: Reports back pain Integumentary/Breasts: Skin/Breast: Denies rash Neurologic: Denies vertigo, Denies dizziness and Denies headache(s) [facility] Past Medical History Medical History (Updated 01/04/25 @ 19:54 by Epi Hardy) Vaginal atrophy Fatty liver Surgical History H/O breast surgery Family History Family History (Updated 12/29/24 @ 15:40 by BENITO Miranda) Mother Adopted Father Bladder cancer Hemochromatosis Social History Social History Housing: House Alcohol intake: never Patient Tobacco Use Status: Former Tobacco user e-Cigarette/Vaping Use: Never Used Advance Directives: No Advance Directives Information Provided: Yes Do you have a plan to hurt others: No Plan service: No Current occupational status: retired Cognitive needs: No Hearing needs: No Vision needs: Yes (Rx glasses) Physical Exam Vital Signs: Vital Signs: Last Vital Signs Temp 98.1 F 01/04/25 18:57 Pulse 57 01/04/25 18:57 Resp 18 01/04/25 18:57 BP 127/62 01/04/25 18:57 Pulse Ox 97 01/04/25 18:57 O2 Del Method Room Air 01/04/25 18:57 BMI result Body Mass Index 29.3 Const: General: healthy appearing, comfortable, no acute distress, alert and awake Nutritional Appearance: well nourished Orientation/consciousness: patient oriented x3 HEENT: Head: Yes normocephalic and Yes atraumatic Eyes: Eyelids: Yes eyelids normal Conjunctivae: conjunctivae normal Sclerae: sclerae normal Corneas: corneas normal Pupils: Equal, round and reactive pupils present EOM: EOMs intact bilaterally Neck: Neck: Yes full ROM Resp: Effort & Inspection: normal respiratory effort, able to speak in complete sentences, no audible wheezes and not labored Auscultation: clear to auscultation bilaterally Cardio: Rate: regular rate Rhythm: regular rhythm GI: Inspection: No distended Palpation (GI): Soft to palpation, not firm, nontender, no guarding and not rigid Back/Spine/Pelvis: Other: left thoracic paraspinous muscle tenderness. No vertebral tenderness. No step-offs or deformities. There was also tenderness in the left posterior axillary line at the level of the 5th through 8th ribs. No crepitus noted Skin: General skin exam: no rashes or lesions noted and elasticity normal Neuro: General: patient oriented x3 Cranial nerves: Yes Equal, round and reactive pupils present and Yes Bilaterally intact EOM present Cognition (Neuro): normal cognition Course Course Course Narrative: RME performed by Elizabeth Hernandez PA-C. Patient is a 69 year old assigned female at presenting to the emergency department with chest pain. Detailed physical exam and review of systems are deferred to the hat lacer. EKG and labs ordered. Patient placed back in the waiting room pending room availability and results. Medications Administered Discontinued Medications Generic Name Dose Route Start Last Admin Trade Name Freq PRN Reason Stop Dose Admin Ketorolac Tromethamine 30 mg 01/04/25 18:19 01/04/25 18:26 Ketorolac Tromethamine 30 Mg/Ml Vial IM 01/04/25 18:20 30 mg ONCE ONE Administration Medical Decision Making Medical Decision Making [facility] Narrative: 69-year-old female who denies any past medical history presents for evaluation of left flank pain. Her pain is reproducible on exam but it radiates around to her chest. This pain has been on and off for over a month. EKG shows normal sinus rhythm with a rate of [address] segment elevation IN. troponin is negative. She rules out for ACS. Chest x-ray is clear without infiltrates. Plan for repeat troponin and D-dimer. Lab Data [facility] Lab Attestation statement: I reviewed the patient's lab results. no leukocytosis or anemia. Normal platelet count. No significant electrolyte abnormalities warranting intervention. 01/04/25 16:38 01/04/25 16:38 Labs: Lab Results 01/04/25 01/04/25 Range/Units 16:38 18:54 WBC 6.5 (4.8-10.8) X10*3/uL RBC 4.50 (4.20-5.50) X10*6/uL Hgb 14.1 (12.0-16.0) g/dl Hct 41.5 (37.0-47.0) % MCV 92.2 (80.0-98.0) fL MCH 31.3 (27.0-33.0) pg MCHC 34.0 (31.0-35.0) g/dl RDW 14.3 (11.0-16.0) % Plt Count 280 (160-400) X10*3/uL MPV 10.0 (9.4-12.3) fL Immature Gran % (Auto) 0.3 (0.0-0.4) % Neut % (Auto) 60.4 (45-73) % Lymph % (Auto) 29.6 (20-40) % [place] % (Auto) 7.7 (2-11) % Eos % (Auto) 0.6 (0-4) % Baso % (Auto) 1.4 (0-2) % Lymph # (Auto) 1.9 (1.2-4.9) X10*3/uL [place] # (Auto) 0.5 (0.1-1.2) X10*3/uL Eos # (Auto) 0.0 (0.0-0.4) X10*3/uL Baso # (Auto) 0.1 (0.0-0.2) X10*3/uL Abs Immat Gran (auto) 0.02 (0.00-0.03) X10*3/uL Absolute Neuts (auto) 3.9 (2.0-8.3) x10*3/uL Absolute Nucleated RBC 0.000 (0.0-0.012) X10*3/uL Nucleated RBC % (auto) 0.0 (0.0-0.2) /100WBC D-Dimer High Sensitivty < 150 NG/ML Sodium 138 (135-145) mmol/L Potassium 4.4 (3.3-5.1) mmol/L Chloride 106 (96-108) mmol/L Carbon Dioxide 21 L (22-29) mmol/L Anion Gap 15 (12-20) BUN 14 (9-16) mg/dL Creatinine 0.80 (0.5-1.4) mg/dL Estim Creat Clear Calc 58.7 Estimated GFR > 60 Random Glucose 100 (60-115) mg/dL Calcium 9.2 (8.4-10.2) mg/dL Troponin I High Sens < 2.7 < 2.7 (<3.5-17.0) ng/L Independent Interpretation I performed an independent interpretation of an: EKG and Plain X-Ray Interpretation: no infiltrates Radiology Impression Discussion of test interpretation with radiology: I have reviewed the radiologist's reading. Radiologist Impression: CLINICAL HISTORY: cp 2 view chest x-ray. Comparison: None Findings: Heart size normal No acute fracture. Impression: Lungs are clear. This document has been electronically signed by: Han Katz MD on 01/04/2025 17:48:54 Discharge Plan Discharge Clinical Impression: Left flank pain, Chest pain Patient Disposition: Home, Self-Care Instructions: Chest Pain (ED), Flank Pain (ED) Additional Instructions: your workup in the ER today was reassuring. This includes your EKG, chest x-ray and labs. you should continue to use Aleve as needed for pain follow-up with your primary doctor, return for new or worsening symptoms Prescriptions: No Action gabapentin 100 mg capsule 100 mg PO TID Qty: 90 0RF Print Language: Ukrainian
[2025-01-04 16:44] LABS: MANUAL DIFF FLAG NO
[2025-01-04 16:45] LABS: Basophils Absolute Auto 0.1 X10*3/uL (0.0-0.2); Basophils Percent Auto 1.4 % (0-2); Eosinophils Percent Auto 0.6 % (0-4); Hematocrit 41.5 % (37.0-47.0); Hemoglobin 14.1 g/dl (12.0-16.0); Imm Gran Abs Auto 0.02 X10*3/uL (0.00-0.03); Imm Gran Pct Auto 0.3 % (0.0-0.4); Lymphocytes Absolute Auto 1.9 X10*3/uL (1.2-4.9); Lymphocytes Percent Auto 29.6 % (20-40); Mean Corpuscular Hemoglobin 31.3 pg (27.0-33.0); Mean Corpuscular Volume 92.2 fL (80.0-98.0); Monocytes Absolute Auto 0.5 X10*3/uL (0.1-1.2); Monocytes Percent Auto 7.7 % (2-11); Neutrophils Absolute Auto 3.9 x10*3/uL (2.0-8.3); Neutrophils Percent Auto 60.4 % (45-73); Platelet Count 280 X10*3/uL (160-400); Red Cell Distribution Width 14.3 % (11.0-16.0); White Blood Count 6.5 X10*3/uL (4.8-10.8)
[2025-01-04 17:00] LABS: Anion Gap 15 (12-20); Blood Urea Nitrogen 14 mg/dL (9-16); Calcium 9.2 mg/dL (8.4-10.2); Carbon Dioxide 21 mmol/L (22-29); Chloride 106 mmol/L (96-108); Creatinine Clr Calc Pharmacy 58.7; Estimated Glomerular Filt Rate > 60; Glucose Random 100 mg/dL (60-115); Potassium 4.4 mmol/L (3.3-5.1); Sodium 138 mmol/L (135-145)
[2025-01-04 17:09] LABS: Troponin-I High Sensitivity < 2.7 ng/L (<3.5-17.0)
[2025-01-04] MEDS: Ketorolac Tromethamine 30 MG/ML VIAL IM (18:26)
[2025-01-04 18:57] VITALS: BP 127/62; PULSE 57; RESP 18; TEMP 36.7; O2SAT 97
--- NOTE | 2025-01-04 19:06 | PC.NURSE ---
this rn assumed care of pt, pt sitting up in stretcher, no acute distress noted, pt reports good relief with medication. vss. repeat labs obtained.
[2025-01-04 19:10] LABS: D Dimer High Sensitivity < 150 NG/ML
[2025-01-04 19:26] LABS: Troponin-I High Sensitivity < 2.7 ng/L (<3.5-17.0)
[2025-01-04 20:11] VITALS: BP 132/78; PULSE 77; RESP 18; TEMP 36.8; O2SAT 99
[2025-01-04 20:12] VITALS: BP 132/78; PULSE 77; RESP 18; TEMP 36.8; O2SAT 99
== END 2025-01-04 20:12 | disposition home or self-care (01) ==
PROVIDERS: Physician Assistant; Emergency Provider Emergency Medicine Emergency Medical Services; PCP Physician Assistant
DX: R07.89 Other chest pain (principal); M54.6 Pain in thoracic spine; I45.10 Unspecified right bundle-branch block; M94.0 Chondrocostal junction syndrome [Tietze]; R10.2 Pelvic and perineal pain; Z87.891 Personal history of nicotine dependence; Z79.899 Other long term (current) drug therapy
CPT/HCPCS: 36415; 71046; 80048; 84484; 85025; 85379; 93005; 96372; 99284; 99285; J1885

== ENCOUNTER → 2025-01-04 16:22 | Outpatient (BNV) | payer MEDICARE, SELFPAY | PROVIDERS: Emergency Provider Emergency Medicine Emergency Medical Services; PCP Physician Assistant; Visit Provider Internal Medicine Cardiovascular Disease | DX: I45.10 Unspecified right bundle-branch block (principal) | CPT/HCPCS: 93010 ==

== ENCOUNTER → 2025-01-04 16:32 | Outpatient (BNV) | payer MEDICARE, SELFPAY | PROVIDERS: Visit Provider Radiology Diagnostic Radiology | DX: R07.9 Chest pain, unspecified (principal) | CPT/HCPCS: 71046 ==

== ENCOUNTER 2025-01-26 14:04 | Outpatient (AMB) | payer MEDICARE, SELFPAY ==
--- NOTE | 2025-01-26 14:07 | A.OFFPC_ITS ---
Vital Signs 01/26/25 14:10 01/26/25 14:24 Height 5 ft Weight 68.039 kg BMI 29.3 BP 110/84 Respiration 16 Pulse 90 Pulse Source Pulse Oximeter Temp 96.7 F L Temp Source Temporal Artery Scan Pulse Oximetry (%) 98 Oxygen Delivery Method Room Air Intake Visit Reasons: 4 week F/U - see comments Building Illuminating Engineer Required: No Accompanied by: Self / Same As Patient Allergies dog dander Allergy (Unknown, Verified 01/26/25 14:07) Unknown horse dander Allergy (Unknown, Verified 01/26/25 14:07) Unknown mold Allergy (Unknown, Uncoded 01/26/25 14:07) Unknown Tobacco use date assessed: 12/29/24 Dental Screening Dental Screen Date: 12/29/24 HPI HPI Comments History of Present Illness Details 69 year old female presenting [facility] for follow up on intercostal neuralgia. She reports symptoms are ongoing but improving. The symptoms started six weeks ago and are reminiscent of a previous episode diagnosed as possible costochondritis vs internal shingles. During that time, internal shingles was also considered, and treatment with gabapentin was initiated to some effect. The current presentation involves pain primarily affecting the left side, with a burning sensation following a band-like pattern under the breast in dermatomal distributation affecting the left side only. The pain worsened upon physical activities, including sitting or carrying loads; however, there is a lack of any observable rash, and the pain persists without significant relief through positional changes or activity modifications. No confirmed history of shingles, but did receive vaccine 2 years ago. She presented to the ED for evaluation of symptoms. Negative work up including EKG, chest x-ray, troponin, D-dimer. She was discharged home and advised to continue taking NSAIDs as needed as well as gabapentin. She reports some symptomatic improvement but reports the left mid back radiating around the ribs he is grinder tender to touch with associated tingling. She does have a history of fibroglandular density of the bresats and underwent prior biopsy of upper left breast which was benign. Continues with annual mammograms which has been negative for malignancy. Pain is not in the breast and has not noticed any breast nodules at present. She was also given a prescription for flexeril which has been helpful and has not been taking this with the gabapentin. ROS: As noted in HPI General: No fevers, malaise, unintentional weight loss Cardiovascular: No chest pain, palpitations, or leg edema Respiratory: No shortness of breath, wheezing, cough MSK: see hpi Neuro: see hpi Skin: No rashes or lesions EXAM: Constitutional - Awake and Alert, No apparent distress Eyes - PERRLA, EOMI Cardiovascular - S1S2, RRR, No edema Respiratory - Normal lung expansion, Normal respiratory effort, No respiratory distress, CTA bilaterally Extremities - no calf tenderness bilaterally, no swelling Musculoskeletal - Normal inspection, normal ROM. Reproducible ttp of the left mid back without palpable spasm along the T4-T5 dermatome Skin - Warm/Dry Neurological - Alert & oriented x3, 5/5 strength BUE Psychological - Appropriate affect PFSH Medical History (Updated 01/05/25 @ 00:00 by Shamika Terrell) Vaginal atrophy Fatty liver Surgical History H/O breast surgery Family History (Updated 12/29/24 @ 15:40 by BENITO Miranda) Mother Adopted Father Bladder cancer Hemochromatosis Social History Housing: House Alcohol intake: never Patient Tobacco Use Status: Former Tobacco user e-Cigarette/Vaping Use: Never Used service: No Current occupational status: retired Cognitive needs: No Hearing needs: No Vision needs: Yes (Rx glasses) Questionnaire Thrive Questionnaire Date Thrive assessed: 12/29/24 KACY-7 AMB Questionnaire KACY-7 Date KACY - 7 assessed: 12/29/24 Source: Developed by Drs. Jay Avila, Juanis Alamo, Cole Henderson and colleagues, with an educational jaki from [employer]. Physical exam (Primary Care) Vital Signs: Last Vital Signs Temp 96.7 F L 01/26/25 14:10 Pulse 90 01/26/25 14:10 Resp 16 01/26/25 14:10 BP 110/84 01/26/25 14:24 Pulse Ox 98 01/26/25 14:10 Oxygen Delivery Method Room Air 01/26/25 14:10 BMI result Body Mass Index 29.3 Tobacco/Smoking Status: Tobacco use Status Tobacco use date assessed 12/29/24 01/26/25 14:11 Patient Tobacco Use Status Former Tobacco user 01/26/25 14:11 e-Cigarette/Vaping Use Never Used 01/26/25 14:11 Thrive Assessment: Date of Thrive Assessment Date Thrive assessed 12/29/24 01/26/25 14:11 Coding Level of Care Code Est Pt Level 4 (75928) Diagnoses Intercostal neuralgia G58.8 Assessment & Plan Assessment & Plan (1) Intercostal neuralgia: Code(s): G58.8 - Other specified mononeuropathies Category: Medical Plan: DDx to include post herpetic neuralgia though less likely given waxing and waning of symptoms, intercostal nerve irritation/compression. Costochondritis also possible but limited effect with antiinflammatories. Referral to PT placed. Continue gabapentin, ibuprofen, tylenol. Take cyclobenzaprine prn. Can also use heat/ice, lidocaine patches. ED notes reviewed including provider note, chest x- ray, labs. Can consider further imaging if not improvement. Plan Follow-up in the office for physical exam as scheduled Orders: Orders PT Evaluation and Treatment Today G58.8 - Other specified mononeuropathies
[2025-01-26 14:10] VITALS: PULSE 90; RESP 16; TEMP 35.9; O2SAT 98; BMI 29.3
[2025-01-26 14:24] VITALS: BP 110/84
== END 2025-01-26 14:29 | disposition home or self-care (01) ==
LOC: HO.HMCHD 14:05
PROVIDERS: PCP Internal Medicine; Visit Provider Physician Assistant
DX: G58.8 Other specified mononeuropathies (principal)

== ENCOUNTER → 2025-01-26 14:04 | Outpatient (BNVA) | payer MEDICARE, SELFPAY | PROVIDERS: PCP Internal Medicine; Visit Provider Physician Assistant | DX: G58.8 Other specified mononeuropathies (principal) | CPT/HCPCS: 99212 ==

== ENCOUNTER 2025-02-24 14:15 | Outpatient (REF) | payer MEDICARE, SELFPAY ==
--- NOTE | ~2025-02-24 | CT_ITS ---
CLINICAL HISTORY: N28.9 - Disorder of kidney and ureter, unspecified --- Additional Notes or Special Instructions: see ct abd pelvis 3 2021- reeval for 7mm echogenic lesion L kidney, Exam: CT abdomen and pelvis without IV contrast Comparison: None Findings: The lack of intravenous contrast hampers the evaluation of solid organs and the ability to detect and characterize soft tissue abnormalities. Normal lung bases. No urolithiasis or obstructive uropathy. Liver, spleen, pancreas, adrenal glands, right kidney, ureters, bladder, reproductive organs are unremarkable. 7 mm fatty mass left kidney lower pole, suggestive of angiomyolipoma. Gallbladder demonstrates heterogeneous intraluminal attenuation, no acute inflammation, no intrahepatic or extrahepatic bile duct dilatation. GI tract demonstrates nothing unusual. Unremarkable vasculature. No bulky lymph nodes. No ascites or pneumoperitoneum. Unremarkable abdominopelvic wall. Mild degenerative changes of the lumbar spine and hips. Impression: 1. No acute finding. No urolithiasis or obstructive uropathy. 2. Left renal 7 mm angiomyolipoma. 3. Suspect cholelithiasis or sludge, no acute inflammation, gallbladder ultrasound can better evaluate if warranted. This document has been electronically signed by: Aletha Grimes MD on 02/26/2025 09:39:04
--- OUTSIDE RECORDS SUMMARY | 2025-02-24 15:26 | XMS_ITS | Patient Health Record ---
Author Organization [facility] Address [address] [place] [address] Care Team Providers Care Professional Security Officer Name Role Phone Spenser Fernandez MD Primary Care Provider Adilson Caro Jr Unavailable [phone] Allergies Allergen (clinical drug ingredient) Drug/Non Drug Allergy documented on EMR Reaction Allergy Type Onset Date Status diphenhydramine Benadryl paradoxical jitteriness Drug Allergy Active Reason For Referral No Information Medications Medication SIG (Take, Route, Fr equency, Duration) Notes Start Date End Date Status Evening [place] Oil Active Aleve 220 MG 1 tablet as needed Orally prn Active MoviPrep 100 GM as directed before c olonoscopy Orally for 1 dose 05/06/2015 Active Ibuprofen 200 MG 1 tablet as needed Orally prn Active Vitamin E 400 UNIT 1 capsule Orally Once a day Active Vitamin D 1000 UNIT 1 capsule Orally Once a day Active Vitamin C 500 MG 1 tablet Orally Once a day Active Problems Problem Type SNOMED Code ICD Code Onset Dates Problem Status W/U Status Risk Notes Problem [id number] Colon cancer screening (V76.51) Active confirmed Problem [id number] Encounter for long-term (current) use of other high-risk medications (V58.69) Active confirmed Plan Of Treatment Future Test Test Name Order Date COLONOSCOPY 05/06/2015 Insurance Providers Payer Name Payer Address Payer Phone Subscriber Number Group Number Insured Name Patient Relationship to Insured Coverage Start Date Coverage End Date [facility] [address] [place] [phone] [id number] KWABENA LEGER Self - patient is the insured Medical (General) History Medical History History ICD Code colonoscopy 02-24-2009 colon polyp depression degenerative joint disease Denies ND,DM,CVA,Lung disease,renal dise ase Surgical History Surgery Date(Month/Year) breast surgery for benign disease
== END 2025-02-24 14:16 | disposition home or self-care (01) ==
LOC: HO.CT 14:15
PROVIDERS: PCP Physician Assistant; Visit Provider Physician Assistant
DX: N28.9 Disorder of kidney and ureter, unspecified (principal)
CPT/HCPCS: 74176

== ENCOUNTER → 2025-02-24 14:17 | Outpatient (BNV) | payer MEDICARE, SELFPAY | PROVIDERS: PCP Physician Assistant; Visit Provider Radiology Diagnostic Radiology | DX: D17.71 Benign lipomatous neoplasm of kidney (principal) | CPT/HCPCS: 74176 ==

== ENCOUNTER 2025-03-30 13:54 | Outpatient (RCR) | payer MEDICARE, SELFPAY ==
--- NOTE | 2025-02-20 15:49 | MHC.PT.EP ---
[facility] [place] Office [place] Office [place] Office [address] Kesha Pelayo [address] [phone] F: [phone] F: [phone] F: [phone] F: [phone] Physical Therapy Plan of Care Date of Evaluation: 02/20/25 Date of Surgery: Diagnosis: INTERCOSTAL NEURALGIA Assessment: 69 YO FEMALE REF TO PT FOR INTERCOSTAL NEURALGIA, EXACERBATED IN OCTOBER 2024, BUT MODST RECENTLY IN DECEMBER 2024. HER PAIN RADIATES INTO Lt RIBCAGE AND Lt BREAST. THE Pt HAS A H/O MILD SCOLIOSIS WITH MILD RIB HUMP Rt/ ROTAT Rt ORIGINATING APPROX T4/5 LEVEL, AT LEVEL OF HER SXS, AND DECR POSTURAL AWARENESS-> (+) LUMBOPELVIC ASYMM CREATING LLI AND INCR TISSUE TENSION Lt LUMBAR PS , DECR SCAP/ POST RC STRENGTH, AND INTERMITTENT PAIN NOTED. SHE HAS DECR KIRSTIN TO FITNESS WALKING, SITTING W ANY PRESSURE TO HER BACK, AND SL Lt OR SUPINE LYING. THE Pt AGREES W POC AND WE WILL PROCEED CAUTIOUSLY W RESPECT TO HER SXS. Frequency and Duration: The patient will be seen 2 x WK x 4 WKS Short Term Goals: DECR Lt RIB CAGE/ INTERCOSTAL PAIN TO 2-3/10 AT MAX Pt INDEP SELF POSTURAL CORRECTION INITIATE HEP-> SCOLIOSIS STRETCH/ STRENGTHEN REDUCE TISSUE TENSION Lt LUMBAR, Rt THOR-> PROMOTE SYMMETRY Nocturnist Physician Goals: Pt INDEP HEP AND SELF SX MGMT TECHN IMPROVED POST RC/ SCAP STRENGTH Pt IMPROVE ADLs-> ABLE TO SLEEP SL Lt OR SUPINE WELL IMPROVED SITTING KIRSTIN Pt DEMON PROPER MECH W 3:3 SIMUL ADLs Treatment Plan: Modalities to reduce pain, spasms and effusion. Manual therapy to restore motion and function. Therapeutic exercise to improve strength and flexibility. Neuromuscular re-education for posture and balance. Therapeutic activities to return to functional activities of daily living. Electronically signed by: MANUEL RDZ,PT Please sign and return to therapist. Thank you for your referral.
--- NOTE | 2025-03-30 15:12 | MHC.PT.DC ---
[facility] [place] Office [place] Office [place] Office [address] Mare Pelayo [address] [phone] F: [phone] F: [phone] F: [phone] F: [phone] Physical Therapy Discharge Report Diagnosis: INTERCOSTAL NEURALGIA Date of Surgery: Date of Evaluation: 02/20/25 Date of Discharge: 03/30/25 Treatments to Date: 9 Cancellations to Date: No Shows to Date: 0 Discharge Status: Achieved Goals Improved Function Independent with HEP Discharge Summary: KWABENA HAS PROGRESSED NICELY IN PT- SHE REMIAND MOTIVATED W HEP AND HAS MET HER PT GOALS- SHE IS INDEP W SX MGMT AND HAS WFL TRUNK/LUMBOPELVIC SYMM- HER PAIN HAS DECR AND SHE HAS MILD EPISODES OF TINGLING IN HER Lt RIB CAGE; HER UPPER BACK STRENGTH IS WFL; SHE DEMON APPROP BODY MECH , REDUCING TISSUE TENSION ON HER THORACOLUMB REGION Electronically signed by: MANUEL RDZ,PT Please sign and return to therapist. Thank you for your referral.
== END 2025-03-30 15:12 | disposition home or self-care (01) ==
LOC: HO.PT 13:54
PROVIDERS: PCP Physician Assistant; Visit Provider Physician Assistant
DX: G58.8 Other specified mononeuropathies (principal)
CPT/HCPCS: 97110; 97140; 97162; 97530

== ENCOUNTER 2025-04-16 12:41 | Outpatient (REF) | payer MEDICARE, SELFPAY | END 2025-04-16 12:42 | disposition home or self-care (01) | LOC: HO.MAMMO 12:41 | PROVIDERS: PCP Physician Assistant; Visit Provider Physician Assistant | DX: Z13.89 Encounter for screening for other disorder (principal) ==

== ENCOUNTER 2025-04-28 13:45 | Outpatient (AMB) | payer MEDICARE, SELFPAY ==
--- NOTE | 2025-04-28 13:53 | A.OFFPC_ITS ---
Vital Signs 04/28/25 13:57 Height 5 ft Weight 69.853 kg BMI 30.1 BP 130/70 Respiration 16 Pulse 62 Pulse Source Pulse Oximeter Temp 97.3 F Temp Source Temporal Artery Scan Pulse Oximetry (%) 97 Oxygen Delivery Method Room Air Intake Visit Reasons: Annual / Dr Fernandez - see comments Ruby Software Developer Required: No Accompanied by: Self / Same As Patient Allergies dog dander Allergy (Unknown, Verified 04/28/25 13:54) Unknown horse dander Allergy (Unknown, Verified 04/28/25 13:54) Unknown mold Allergy (Unknown, Uncoded 04/28/25 13:54) Unknown Medication List - Last Reconciled 04/28/25 by RENA Gamboa cyclobenzaprine 10 mg PO BEDTIME gabapentin 100 mg PO TID ibuprofen 800 mg PO Q8H PRN Tobacco use date assessed: 12/29/24 Dental Screening Dental Screen Date: 12/29/24 HPI HPI Comments History of Present Illness Details 69-year-old female with history of right intercostal neuralgia as well as osteopenia presents to the office today for annual physical exam. Lives with and feels safe there. 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 History of cigarettes, quit over 40 years ago. No alcohol use. Smoked marijuana as a teenager. No illicit drugs. Overall following a healthy diet. R intercostal pain- still taking gabapentin. PT did help. Still occurs intermittently, but not severe. Wants to dc gabapentin Osteopenia-FRAX 12.1%. Check calcium and vitamin-D. Recommend weight-bearing exercise Concerns: About 1 months ago staining deck and was leaning on the LUE/hand x 2 days. After this hand felt weak with difficulty picking things up in the fingers into hand. Some numbness, but no pain. Pain over R achilles tendon. Stiffness in the area helped with ROM exercises. Wakes up and is limping, better with more movement. Started after weeding the garden kneeling down on the R leg with foot in dorsiflexion. Mole L flank present x years. ?getting bigger but no color or border changes. Also nevus on scalp that has not changed over years. Health Maintenance: Office wouldnt do mammo due to pain in R intercostal pain Last pap 06/2025, following annually with [facility] now, but did miss many years DXA scan up to date Overdue for eye exam Go to dentist every 4 months Reviewed past surgical, medical, social, family history ROS: General: No fevers, malaise, unintentional weight loss HEENT: No blurred vision, diplopia. No sore throat, nasal congestion, rhinorrhea, sinus pain, ear pain. No hearing loss Neck - no adenopathy Cardiovascular: No chest pain, palpitations, or leg edema Respiratory: No shortness of breath, wheezing, cough Breast: No pain, palpable lumps, nipple inversion GI: No dysphagia, odynophagia, globus sensation. No abdominal pain, nausea, vomiting, diarrhea, constipation, melena, hematochezia : No dysuria, hematuria, increased urinary frequency, decreased urinary output. [employer]: No abn vaginal bleeding or discharge MSK: No myalgia, back pain, arthralgias. See HPI Neuro: No headaches, weakness, paresthesias Psych: no depression/anxiery. No AH/VH. No SI/HI Skin: No rashes or lesions. See HPI EXAM: Constitutional - Awake and Alert, No apparent distress Eyes - PERRLA, EOMI. Anicteric Ears - external ears normal, canals clear, TMs intact and pearly garcia with good cone of light Nose- septum midline, nares clear, no sinus tenderness Mouth/throat- mucosa moist, tongue and uvula midline, no erythema/edema or tonsillar adenopathy. Neck-trachea midline, thyroid symmetric without palpable nodules, no adenopathy Cardiovascular - S1S2, RRR, No edema Respiratory - Normal lung expansion, Normal respiratory effort, No respiratory distress, CTA bilaterally Gastrointestinal - NT / ND; +BS; No rebound or guarding - No CVA tenderness Extremities - no calf tenderness bilaterally, no swelling Musculoskeletal - Normal inspection, normal ROM . Tenderness to palpation over the insertion of the Achilles tendon into the calcaneus. Left fingers and wrist with full range of motion. Sensation intact. No evidence of carpal tunnel syndrome Skin - Warm/Dry, no concerning lesions . Typical appearing nevi of the scalp and left flank Neurological - Alert & oriented x3, CN II-XII in tact, 5/5 strength BUE and BLE, 2+ patellar reflexes, sensation intact Psychological - Appropriate affect [facility] Medical History (Updated 04/28/25 @ 17:16 by RENA Gmaboa) Osteopenia Vaginal atrophy Fatty liver Surgical History H/O breast surgery Family History (Updated 04/28/25 @ 14:18 by RENA Gamboa) Mother CAD (coronary artery disease) Lewy body dementia Adopted Father Bladder cancer Hemochromatosis Social History Housing: House Alcohol intake: never Patient Tobacco Use Status: Former Tobacco user e-Cigarette/Vaping Use: Never Used service: No Current occupational status: retired Cognitive needs: No Hearing needs: No Vision needs: Yes (Rx glasses) Questionnaire Thrive Questionnaire Date Thrive assessed: 12/29/24 KACY-7 AMB Questionnaire KACY-7 Date KACY - 7 assessed: 12/29/24 Source: Developed by Drs. Jay Avila, Juanis Alamo, Cole Henderson and colleagues, with an educational jaki from [employer]. Physical exam (Primary Care) Vital Signs: Last Vital Signs Temp 97.3 F 04/28/25 13:57 Pulse 62 04/28/25 13:57 Resp 16 04/28/25 13:57 BP 130/70 04/28/25 13:57 Pulse Ox 97 04/28/25 13:57 Oxygen Delivery Method Room Air 04/28/25 13:57 BMI result Body Mass Index 30.1 Tobacco/Smoking Status: Tobacco use Status Tobacco use date assessed 12/29/24 04/28/25 13:59 Patient Tobacco Use Status Former Tobacco user 04/28/25 13:59 e-Cigarette/Vaping Use Never Used 04/28/25 13:59 Thrive Assessment: Date of Thrive Assessment Date Thrive assessed 12/29/24 04/28/25 13:59 Coding Level of Care Code Est Pt Prev Care >65y(28065) Diagnoses Routine medical exam Z00.00 Osteopenia M85.80 Breast pain, left N64.4 Intercostal neuralgia G58.8 Achilles tendonitis M76.60 Paresthesia of hand R20.2 Assessment & Plan Assessment & Plan (1) Routine medical exam: Code(s): Z00.00 - Encounter for general adult medical examination without abnormal findings Plan: 69-year-old female presenting for annual physical exam. Plan as below (2) Osteopenia: Code(s): M85.80 - Other specified disorders of bone density and structure, unspecified site Category: Medical Plan: DEXA scan [place]. Recommend calcium and vitamin-D, will check levels today. Recommend weight-bearing exercise (3) Breast pain, left: Code(s): N64.4 - Mastodynia Category: Medical Plan: Referred for diagnostic mammogram and ultrasound (4) Intercostal neuralgia: Code(s): G58.8 - Other specified mononeuropathies Category: Medical Plan: Can continue gabapentin or may wean off gradually (5) Achilles tendonitis: Code(s): M76.60 - Achilles tendinitis, unspecified leg Category: Medical Plan: Recommend ibuprofen 800 mg every 8 hours as needed. She is given gentle exercises Department form at home. Recommend good fitting shoes as well as ice (6) Paresthesia of hand: Code(s): R20.2 - Paresthesia of skin Category: Medical Plan: Referred to occupational therapy Plan Routine screening labs as ordered below Continue with screening mammograms, Pap smears, colonoscopies Continue following for annual skin exams and use sun protection Annual eye exams Wear seat belt in car Recommend regular exercise and healthy diet Follow-up in 1 year for annual physical exam, sooner if needed Orders: Orders US breast LT complete Today N60.19 - Diffuse cystic mastopathy of unspecified breast, N64.4 - Mastodynia MM tomosynthesis diagnostic BI Today N60.19 - Diffuse cystic mastopathy of unspecified breast, N64.4 - Mastodynia Basic Metabolic Panel Today M85.80 - Other specified disorders of bone density and structure, unspecified site, N95.1 - Menopausal and female climacteric states Vitamin D 25-OH Total Today M85.80 - Other specified disorders of bone density and structure, unspecified site, N95.1 - Menopausal and female climacteric states OT Evaluation and Treatment Today R29.898 - Other symptoms and signs involving the musculoskeletal system Referrals Gastroenterology Referral M85.80 - Other specified disorders of bone density and structure, unspecified site, Z12.11 - Encounter for screening for malignant neoplasm of colon Dermatology Referral Z12.83 - Encounter for screening for malignant neoplasm of skin Medications: New ibuprofen 800 mg PO Q8H PRN 90 tabs 0RF pain Patient Instructions: Ask pharmacy about PCV 21
[2025-04-28 13:57] VITALS: BP 130/70; PULSE 62; RESP 16; TEMP 36.3; O2SAT 97; BMI 30.1
== END 2025-04-28 14:38 | disposition home or self-care (01) ==
LOC: HO.HMCHD 13:46
PROVIDERS: PCP Physician Assistant; Visit Provider Physician Assistant
DX: Z00.00 Encounter for general adult medical examination without abnormal findings (principal); M85.80 Other specified disorders of bone density and structure, unspecified site; N64.4 Mastodynia; G58.8 Other specified mononeuropathies; M76.60 Achilles tendinitis, unspecified leg; R20.2 Paresthesia of skin

== ENCOUNTER → 2025-04-28 13:45 | Outpatient (BNVA) | payer MEDICARE, SELFPAY | PROVIDERS: PCP Physician Assistant; Visit Provider Physician Assistant | DX: Z00.00 Encounter for general adult medical examination without abnormal findings (principal); M85.80 Other specified disorders of bone density and structure, unspecified site; N64.4 Mastodynia; G58.8 Other specified mononeuropathies; M76.60 Achilles tendinitis, unspecified leg; R20.2 Paresthesia of skin | CPT/HCPCS: 99397 ==

== ENCOUNTER 2025-04-29 11:45 | Outpatient (REF) | payer MEDICARE, SELFPAY ==
[2025-04-29 13:13] LABS: Anion Gap 11 (12-20); Blood Urea Nitrogen 20 mg/dL (9-16); Calcium 8.7 mg/dL (8.4-10.2); Carbon Dioxide 27 mmol/L (22-29); Chloride 109 mmol/L (96-108); Estimated Glomerular Filt Rate > 60; Potassium 4.6 mmol/L (3.3-5.1); Sodium 142 mmol/L (135-145)
--- OUTSIDE RECORDS SUMMARY | 2025-04-29 14:10 | XMS_ITS | Patient Health Record ---
Author Organization [facility] Address [address] [place] [address] Care Team Providers Care Chaser Apprentice Name Role Phone Rebecca (RETIRED) Spenser QUEVEDO Primary Care Provide r Unavailable Adilson Landon Jr Unavailable Allergies Allergen (clinical drug ingredient) Drug/Non Drug Allergy documented on EMR Reaction Allergy Type Onset Date Status Information temporarily unavailable Benadryl paradoxical jitteriness Drug Allergy Active Reason For Referral No Information Medications Medication SIG (Take, Route, Fr equency, Duration) Notes Start Date End Date Status Evening [place] Oil Active Aleve 220 MG 1 tablet [...] Problem Status W/U Status Risk Notes Problem 544649797 Colon cancer screening (V76.51) Active confirmed Problem [id number] Encounter for long-term (current) use of other high-risk medications (V58.69) Active confirmed Plan Of Treatment Future Test Test Name Order Date COLONOSCOPY 05/06/2015 Insurance Providers Payer Name Payer Address Payer Phone Subscriber Number Group Number Insured Name Patient Relationship to Insured Coverage Start Date Coverage End Date [facility] [address] [place] [phone] [id number] MORENO Self - patient is the insured Medical (General) History Medical History History ICD Code colonoscopy 02-24-2009 colon polyp depression degenerative joint disease Denies NC,DM,CVA,Lung disease,renal dise ase Surgical History Surgery Date(Month/Year) breast surgery for benign disease
== END 2025-04-29 11:46 | disposition home or self-care (01) ==
LOC: HO.LAB 11:45
PROVIDERS: PCP Physician Assistant; Visit Provider Physician Assistant
DX: N95.1 Menopausal and female climacteric states (principal); M85.80 Other specified disorders of bone density and structure, unspecified site
CPT/HCPCS: 36415; 80048; 82306

== ENCOUNTER 2025-05-18 12:48 | Outpatient (RCR) | payer MEDICARE, SELFPAY ==
--- NOTE | 2025-05-18 14:49 | MHC.OT.DC ---
[facility] Office [address] [phone] F: [phone] F: [phone] Occupational Therapy Discharge Note Patient Name: Nell Elizabeth Provider: Mare Coles Diagnosis: L HAND WEAKNESS Date of Evaluation: 05/01/25 Date of Discharge: 05/18/25 Treatments to Date: 4 Cancellations to Date: 0 No Shows to Date: 0 Discharge Status: Achieved Goals Improved Function Independent with HEP Discharge Summary: MS ELIZABETH IS COMPLIANT WITH HER HEP AND DEMO GOOD UNDERSTANDING OF PROGRESSION OF HEP. SHE IS FINDING RELIEF WITH HEAT, MASSAGE, CUSTOM ORTHOSIS AND ISOMETRIC EXERCISES. Pt READY FOR TRANSITION TO A HOME BASED PROGRAM. NO ADDITIONAL OT WARRANTED. Electronically Signed By: ARYA ZENG OTR/Omar Reviewed/agree with student documentation: N/A Therapist: Please Sign and return to therapist, thank you for your referral.
== END 2025-05-18 14:45 | disposition home or self-care (01) ==
LOC: HO.OT 12:48
PROVIDERS: PCP Physician Assistant; Visit Provider Physician Assistant
DX: R29.898 Other symptoms and signs involving the musculoskeletal system (principal)
CPT/HCPCS: 29130; 97110; 97140; 97166; 97760

== ENCOUNTER 2025-05-20 10:44 | Outpatient (REF) | payer MEDICARE, SELFPAY ==
--- NOTE | ~2025-05-20 | US_ITS ---
EXAMINATION: MM DIAGNOSTIC DIGITAL BREAST TOMOSYNTHESIS, BILATERAL Limited left breast ultrasound. CLINICAL INFORMATION: Left breast pain. COMPARISON: Mammography: Comparison is made with relevant prior exams. TECHNIQUE: Digital breast mammography with tomosynthesis is performed in both the craniocaudal and mediolateral oblique views along with computer-aided detection (CAD). FINDINGS: The breasts are heterogeneously dense, which may obscure small masses. Left marker clip. There are no significant masses, abnormal calcifications, or other abnormalities. Targeted color Doppler ultrasound scanning in the area of the patient's left breast pain lateral breast from 1-5 o'clock demonstrates normal from nodular breast tissue. There is no sonographic abnormal finding. Results are provided to the patient at time of visit by the technologist. US/US breast LT limited mamm only IMPRESSION: Right: Negative. Left: No mammographic or sonographic abnormal finding to account for the patient's left breast pain. Recommend clinical evaluation and follow-up. ASSESSMENT: BI-RADS Category 1: Negative RECOMMENDATION: 1 year F/U This patient's information was entered into a reminder system with a target due date for their next mammogram. Electronically signed by: Magda Tilley DO 05/20/2025 12:14 PM EDT
--- OUTSIDE RECORDS SUMMARY | 2025-05-20 13:30 | XMS_ITS | Patient Health Record ---
Author Organization [facility] Address [address] [place] [address] Care Team Providers Care Timber Management Technician Name Role Phone Rebecca (RETIRED) Spenser QUEVEDO Primary Care Provide r Unavailable Adilson Landon Jr Unavailable Allergies Allergen (clinical drug ingredient) Drug/Non Drug Allergy documented on EMR Reaction Allergy Type Onset Date Status diphenhydramine Benadryl paradoxical jitteriness Drug Allergy Active Reason For Referral No Information Medications Medication SIG (Take, Route, Fr equency, Duration) Notes Start Date End Date Status Evening [place] Oil Active Aleve 220 MG 1 tablet [...] Problem Status W/U Status Risk Notes Problem 553677710 Colon cancer screening (V76.51) Active confirmed Problem 616352864 Encounter for long-term (current) use of other high-risk medications (V58.69) Active confirmed Plan Of Treatment Future Test Test Name Order Date COLONOSCOPY 05/06/2015 Insurance Providers Payer Name Payer Address Payer Phone Subscriber Number Group Number Insured Name Patient Relationship to Insured Coverage Start Date Coverage End Date [facility] [address] [place] [phone] [id number] KWABENA LEGER Self - patient is the insured Medical (General) History Medical History History ICD Code colonoscopy 02-24-2009 colon polyp depression degenerative joint disease Denies [place],DM,CVA,Lung disease,renal dise ase Surgical History Surgery Date(Month/Year) breast surgery for benign disease
== END 2025-05-20 10:45 | disposition home or self-care (01) ==
LOC: HO.MAMMO 10:44
PROVIDERS: PCP Physician Assistant; Visit Provider Physician Assistant
DX: N64.4 Mastodynia (principal); N60.12 Diffuse cystic mastopathy of left breast
CPT/HCPCS: 76642; 77062; 77066

== ENCOUNTER → 2025-05-20 11:00 | Outpatient (BNV) | payer MEDICARE, SELFPAY | PROVIDERS: PCP Physician Assistant; Visit Provider Internal Medicine | DX: N64.4 Mastodynia (principal); N60.12 Diffuse cystic mastopathy of left breast | CPT/HCPCS: 76642; 77066; G0279 ==

== ENCOUNTER 2025-06-30 09:02 | Outpatient (AMB) | payer MEDICARE, SELFPAY ==
--- NOTE | 2025-06-30 07:49 | MHC.PC.OV ---
Vital Signs 06/30/25 09:04 Height 5 ft 1.02 in Weight 68.039 kg BMI 28.3 BP 116/68 Blood Pressure Location Rt brachial Position Sitting Respiration 18 Pulse 67 Pulse Source Pulse Oximeter Temp 97.7 F Temp Source Temporal Artery Scan Pulse Oximetry (%) 98 Oxygen Delivery Method Room Air Intake Visit Reasons: Acid reflux [id number] OTC no relief Conservation Scientist Required: No Accompanied by: Self / Same As Patient Allergies dog dander Allergy (Unknown, Verified 06/30/25 07:50) Unknown horse dander Allergy (Unknown, Verified 06/30/25 07:50) Unknown mold Allergy (Unknown, Uncoded 04/28/25 13:54) Unknown Medication List - Last Reconciled 06/30/25 by RENA Gamboa cyclobenzaprine 10 mg PO BEDTIME PRN gabapentin 100 mg PO TID PRN sucralfate (Carafate) 1 g PO QIDACHS Tobacco use date assessed: 12/29/24 Dental Screening Dental Screen Date: 12/29/24 HPI HPI Comments History of Present Illness Details 69-year-old female with history of right intercostal neuralgia as well as osteopenia presents to the office today for evaluation. R intercostal pain- still taking gabapentin. PT did help. Still occurs intermittently, but not severe. Wants to dc gabapentin Osteopenia-FRAX 12.1%. Check calcium and vitamin-D. Recommend weight-bearing exercise Concerns: Reflux- burning, regurgiation globus sensation. No vomiting. Has been taking ibuprofen 800mg 1-2 times daily for some time for pain management, stopped 1 week, then switched to aleve several days after symptoms started. Has tried pepto bismal with very short term relief. Somewhat better today but still has globus sensation. Feels like she has to swallow harder. Similar symptoms 1994, given pepcid at the time. Has not tried that as she was concerned about fatty liver. No abd pain, no change in bowel habits, melena, or hematochezia. Did have somewhat darl stool after pepto bismal Health Maintenance: Office wouldnt do mammo due to pain in R intercostal pain Last pap 06/2025, following annually with CAMPAIGN CONSULTANT now, but did miss many years DXA scan up to date Overdue for eye exam Go to dentist every 4 months Reviewed past surgical, medical, social, family history ROS: General: No fevers, malaise, unintentional weight loss HEENT: No blurred vision, diplopia. No sore throat, nasal congestion, rhinorrhea, sinus pain, ear pain. No hearing loss Neck - no adenopathy Cardiovascular: No chest pain, palpitations, or leg edema Respiratory: No shortness of breath, wheezing, cough Breast: No pain, palpable lumps, nipple inversion GI: No dysphagia, odynophagia, globus sensation. No abdominal pain, nausea, vomiting, diarrhea, constipation, melena, hematochezia : No dysuria, hematuria, increased urinary frequency, decreased urinary output. CAMPAIGN CONSULTANT: No abn vaginal bleeding or discharge MSK: No myalgia, back pain, arthralgias. See HPI Neuro: No headaches, weakness, paresthesias Psych: no depression/anxiery. No AH/VH. No SI/HI Skin: No rashes or lesions. See HPI EXAM: Constitutional - Awake and Alert, No apparent distress Eyes - PERRLA, EOMI. Anicteric Ears - external ears normal, canals clear, TMs intact and pearly garcia with good cone of light Nose- septum midline, nares clear, no sinus tenderness Mouth/throat- mucosa moist, tongue and uvula midline, no erythema/edema or tonsillar adenopathy. Neck-trachea midline, thyroid symmetric without palpable nodules, no adenopathy Cardiovascular - S1S2, RRR, No edema Respiratory - Normal lung expansion, Normal respiratory effort, No respiratory distress, CTA bilaterally Gastrointestinal - NT / ND; +BS; No rebound or guarding - No CVA tenderness Extremities - no calf tenderness bilaterally, no swelling Musculoskeletal - Normal inspection, normal ROM . Tenderness to palpation over the insertion of the Achilles tendon into the calcaneus. Left fingers and wrist with full range of motion. Sensation intact. No evidence of carpal tunnel syndrome Skin - Warm/Dry, no concerning lesions . Typical appearing nevi of the scalp and left flank Neurological - Alert & oriented x3, CN II-XII in tact, 5/5 strength BUE and BLE, 2+ patellar reflexes, sensation intact Psychological - Appropriate affect [facility] Medical History (Updated 06/30/25 @ 09:19 by RENA Gamboa) HLD (hyperlipidemia) Osteopenia Vaginal atrophy Fatty liver Surgical History H/O breast surgery Family History (Updated 04/28/25 @ 14:18 by RENA Gamboa) Mother CAD (coronary artery disease) Lewy body dementia Adopted Father Bladder cancer Hemochromatosis Social History Housing: House Alcohol intake: never Patient Tobacco Use Status: Former Tobacco user e-Cigarette/Vaping Use: Never Used service: No Current occupational status: retired Cognitive needs: No Hearing needs: No Vision needs: Yes (Rx glasses) Questionnaire Thrive Questionnaire Date Thrive assessed: 12/29/24 KACY-7 AMB Questionnaire KACY-7 Date KACY - 7 assessed: 12/29/24 Source: Developed by Drs. Jay Avila, Juanis Alamo, Cole Henderson and colleagues, with an educational jaki from [employer]. Physical exam (Primary Care) Vital Signs: Last Vital Signs Temp 97.7 F 06/30/25 09:04 Pulse 67 06/30/25 09:04 Resp 18 06/30/25 09:04 BP 116/68 06/30/25 09:04 Pulse Ox 98 06/30/25 09:04 Oxygen Delivery Method Room Air 06/30/25 09:04 BMI result Body Mass Index 28.3 Tobacco/Smoking Status: Tobacco use Status Tobacco use date assessed 12/29/24 06/30/25 07:50 Patient Tobacco Use Status Former Tobacco user 06/30/25 07:50 e-Cigarette/Vaping Use Never Used 06/30/25 07:50 Thrive Assessment: Date of Thrive Assessment Date Thrive assessed 12/29/24 06/30/25 07:50 Coding Level of Care Code Est Pt Level 4 (60196) Diagnoses Gastritis and duodenitis K29.90 HLD (hyperlipidemia) E78.5 Fatty liver K76.0 Assessment & Plan Assessment & Plan (1) Gastritis and duodenitis: Code(s): K29.90 - Gastroduodenitis, unspecified, without bleeding Plan: Check H pylori breath test. Also check CBC to evaluate for any anemia. Given prescription for famotidine 20 mg twice daily as well as Carafate. If no improvement, can consider PPI and referral to Gastroenterology. Given information on triggering food items to avoid. (2) HLD (hyperlipidemia): Code(s): E78.5 - Hyperlipidemia, unspecified Category: Medical Plan: Check liver profile. ASCVD risk score to be calculated pending results (3) Fatty liver: Code(s): K76.0 - Fatty (change of) liver, not elsewhere classified Category: Medical Plan: Liver panel ordered. Plan Follow-up as scheduled for annual physical exam. Orders: Orders Complete Blood Count Auto Diff Today K27.9 - Peptic ulcer, site unspecified, unspecified as acute or chronic, without hemorrhage or perforation Basic Metabolic Panel Today E78.5 - Hyperlipidemia, unspecified, K27.9 - Peptic ulcer, site unspecified, unspecified as acute or chronic, without hemorrhage or perforation, K76.0 - Fatty (change of) liver, not elsewhere classified Lipid Panel Today E78.5 - Hyperlipidemia, unspecified, K27.9 - Peptic ulcer, site unspecified, unspecified as acute or chronic, without hemorrhage or perforation, K76.0 - Fatty (change of) liver, not elsewhere classified H Pylori Breath Test Today K29.70 - Gastritis, unspecified, without bleeding Liver Panel Today E78.5 - Hyperlipidemia, unspecified, K27.9 - Peptic ulcer, site unspecified, unspecified as acute or chronic, without hemorrhage or perforation, K76.0 - Fatty (change of) liver, not elsewhere classified Medications: New sucralfate (Carafate) 1 g PO QIDACHS 120 tabs 0RF famotidine (Pepcid) 20 mg PO BID 60 tabs 0RF
[2025-06-30 09:04] VITALS: BP 116/68; PULSE 67; RESP 18; TEMP 36.5; O2SAT 98; BMI 28.3
--- OUTSIDE RECORDS SUMMARY | 2025-06-30 09:45 | XMS_ITS | Patient Health Record ---
Author Organization [facility] Address [address] [place] [address] Care Team Providers Care Manager Supply Chain Planning Name Role Phone Rebecca (RETIRED) Spenser QUEVEDO Primary Care Provide r Jaden Landon Jr, Adilson Stanley Allergies Allergen (clinical drug ingredient) Drug/Non Drug Allergy documented on EMR Reaction Allergy Type Onset Date Status diphenhydramine Benadryl paradoxical jitteriness Drug Allergy Active Reason For Referral No Information Medications Medication SIG (Take, Route, Fr equency, Duration) Notes Start Date End Date Status Evening [place] Oil Active Aleve 220 MG 1 tablet as needed Orally prn Active MoviPrep 100 GM as directed before c olonoscopy Orally; Duration: 1 dose 05/06/2015 Active Ibuprofen 200 MG 1 tablet as needed Orally prn Active Vitamin E 400 UNIT 1 capsule Orally Once a day Active Vitamin D 1000 UNIT 1 capsule Orally Once a day Active Vitamin C 500 MG 1 tablet Orally Once a day Active Problems Problem Type SNOMED Code ICD Code Onset Dates Problem Status W/U Status Risk Notes Problem Colon cancer screening (520978831) Colon cancer screening (V76.51) Active confirmed Problem Long-term drug therapy (630938333) Encounter for long-term (current) use of other high-risk medications (V58.69) Active confirmed Plan Of Treatment Future Test Test Name Order Date COLONOSCOPY 05/06/2015 Next Appt Details Provider Name:Adilson reed Jr, 09/17/2025 03:15:00 PM, [address], [address], [place], [address], Insurance Providers Payer Name Payer Address Payer Phone Subscriber Number Group Number Insured Name Patient Relationship to Insured Coverage Start Date Coverage End Date [facility] [address] [place], [place] [phone] [id number] KWABENA LEGER Self - patient is the insured Medical (General) History Medical History History ICD Code colonoscopy 02-24-2009 colon polyp depression degenerative joint disease Denies [place],DM,CVA,Lung disease,renal dise ase Surgical History Surgery Date(Month/Year) breast surgery for benign disease
== END 2025-06-30 09:21 | disposition home or self-care (01) ==
LOC: HO.HMCHD 09:02
PROVIDERS: PCP Physician Assistant; Visit Provider Physician Assistant
DX: K29.90 Gastroduodenitis, unspecified, without bleeding (principal); E78.5 Hyperlipidemia, unspecified; K76.0 Fatty (change of) liver, not elsewhere classified

== ENCOUNTER 2025-06-30 09:02 | Outpatient (REF) | payer MEDICARE, SELFPAY | END 2025-06-30 09:03 | disposition home or self-care (01) | LOC: HO.LAB 09:02 | PROVIDERS: PCP Physician Assistant; Visit Provider Physician Assistant | DX: Z13.89 Encounter for screening for other disorder (principal) | CPT/HCPCS: 99212 ==

== ENCOUNTER 2025-06-30 09:28 | Outpatient (REF) | payer MEDICARE, SELFPAY ==
[2025-06-30 09:53] LABS: MANUAL DIFF FLAG NO
[2025-06-30 09:56] LABS: Hematocrit 45.3 % (37.0-47.0); Hemoglobin 15.0 g/dl (12.0-16.0); Imm Gran Abs Auto 0.01 X10*3/uL (0.00-0.03); Imm Gran Pct Auto 0.2 % (0.0-0.4); Lymphocytes Absolute Auto 1.8 X10*3/uL (1.2-4.9); Mean Corpuscular HGB Conc 33.1 g/dl (31.0-35.0); Mean Corpuscular Hemoglobin 31.2 pg (27.0-33.0); Mean Corpuscular Volume 94.2 fL (80.0-98.0); NRBC Pct Auto 0.0 /100WBC (0.0-0.2); Platelet Count 355 X10*3/uL (160-400); Red Blood Count 4.81 X10*6/uL (4.20-5.50); White Blood Count 6.0 X10*3/uL (4.8-10.8)
[2025-06-30 09:57] LABS: NRBC Abs Auto 0.000 X10*3/uL (0.0-0.012)
[2025-06-30 11:00] LABS: Alanine Aminotransferase 32 U/L (0-31); Albumin Level 4.5 g/dL (3.5-5.0); Alkaline Phosphatase 84 U/L (39-117); Anion Gap 12 (12-20); Aspartate Amino Transferase 30 U/L (5-31); Blood Urea Nitrogen 20 mg/dL (9-16); Calcium 9.4 mg/dL (8.4-10.2); Carbon Dioxide 25 mmol/L (22-29); Chloride 106 mmol/L (96-108); Cholesterol 238 mg/dL (<200); Estimated Glomerular Filt Rate 58; HDL Cholesterol 61 mg/dL (>40); Potassium 4.2 mmol/L (3.3-5.1); Sodium 139 mmol/L (135-145); Total Protein 7.8 g/dL (6.5-8.0); Triglycerides 119 mg/dL (<150)
== END 2025-06-30 09:29 | disposition home or self-care (01) ==
LOC: HO.10HDL 09:28
PROVIDERS: Visit Provider Physician Assistant
DX: K76.0 Fatty (change of) liver, not elsewhere classified (principal); E78.5 Hyperlipidemia, unspecified; K27.9 Peptic ulcer, site unspecified, unspecified as acute or chronic, without hemorrhage or perforation
CPT/HCPCS: 36415; 80048; 80061; 80076; 83721; 85025; 99212

== ENCOUNTER 2025-07-02 14:44 | Outpatient (AMB) | payer MEDICARE, SELFPAY ==
--- NOTE | 2025-07-02 14:48 | A.OFFVIS_ITS ---
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 Intake Note: Here for associate dean of women annual Laboratory Machinist Required: No Information Interpreted: non-clinical & clinical Picking Machine Operator: Picking Machine Operator Present (Alicia) Accompanied by: Self / Same As Patient Allergies dog dander Allergy (Unknown, Verified 07/02/25 14:51) Unknown horse dander Allergy (Unknown, Verified 07/02/25 14:51) Unknown mold Allergy (Unknown, Uncoded 07/02/25 14:51) Unknown Medication List - Last Reconciled 07/02/25 by Liset Thibodeaux LPN atorvastatin (Lipitor) 20 mg PO DAILY cyclobenzaprine 10 mg PO BEDTIME PRN famotidine (Pepcid) 20 mg PO BID sucralfate (Carafate) 1 g PO QIDACHS Do you need a note to return to daycare/school/sports/work: No HPI Comments Details: Patient is a postmenopausal woman 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 Chemical Etching Processor concerns: none. Currently sexually active. Denies any vaginal dryness or irritation. STI testing offered; she declined. Attempting to eat a healthy diet with calcium and vitamin D and stays active wi th exercise. Last pap smear; 2023, negative. Last mammogram; 2024. Colonoscopy consultation is booked. Denies any family history of breast, ovarian or colon cancer. [facility] Medical History HLD (hyperlipidemia) Osteopenia Vaginal atrophy Fatty liver Surgical History H/O breast surgery Family History Mother CAD (coronary artery disease) Lewy body dementia Adopted Father Bladder cancer Hemochromatosis Social History Housing: House Alcohol intake: never Patient Tobacco Use Status: Former Tobacco user e-Cigarette/Vaping Use: Never Used service: No Current occupational status: retired Cognitive needs: No Hearing needs: No Vision needs: Yes (Rx glasses) Female Reproductive History Menstrual Age of Menarche: 14 Date of menopause: 07/02/08 Age of menopause: 55 Total pregnancies: 2 Number of Living Children: 2 History of abnormal pap smear: No Date of Mammogram: 05/20/25 History of abnormal mammogram: No Review of Systems Const All systems reviewed & are unremarkable except as noted in HPI and below Reports as per HPI Eyes Reports no additional complaints ENT Reports no additional complaints Card Reports no additional complaints Resp Reports no additional complaints GI Reports as per HPI and Reports no additional complaints Reports as per HPI Musc Reports no additional complaints Skin/Breast Reports as per HPI Neuro Reports no additional complaints Psych Reports no additional complaints Endo Reports no additional complaints Pankaj/Lymph Reports no additional complaints Aller/Immun Reports no additional complaints Physical Exam Vital Signs: Last Vital Signs BP 110/64 07/02/25 14:56 BMI result Body Mass Index 28.0 Const General: cooperative, healthy appearing, no acute distress, well developed and alert Orientation/consciousness: patient oriented x3 HEENT Head: Yes normal to inspection Eyes General: appearance normal, both eyes and all related structures Neck Neck: Yes normal visual inspection Thyroid: Thyroid normal Chest Chest palpation & inspection: normal inspection of the chest and other (no puckering, dimpling, peau de orange, retraction, discharge, masses) Breast/axilla inspection: normal inspection of the breasts Breast/axilla palpation: normal palpation of the breasts Resp Effort & Inspection: normal respiratory effort GI Inspection: Yes normal to inspection Palpation (GI): Soft to palpation Rectal Exam - Female: deferred General: Yes bladder normal to palpation External Female Exam: normal external appearance and normal appearance of the urethra Speculum Exam - Vagina: normal appearance of the vagina, normal palpation, normal vaginal discharge and vagina atrophic Speculum Exam - Cervix: normal appearance of the cervix and normal palpation Bimanual exam- vagina & uterus: normal bimanual exam, normal palpation, uterine size normal, bladder normal to palpation, normal palpation and non-tender Bimanual Exam- Adnexa, other: no masses Skin General skin exam: no rashes or lesions noted Rashes: no rashes Neuro General: patient oriented x3 Cognition (Neuro): normal cognition Extrem General: Yes normal to inspection Psych Attitude: cooperative Thought process: Normal thought process present Assessment & Plan Assessment & Plan (1) Encounter for well woman exam with routine gynecological exam: Code(s): Z01.419 - Encounter for gynecological examination (general) (routine) without abnormal findings Category: Medical Plan Discussed: Current recommendations for pap smears per ASCCP guidelines. Breast awareness, periodic self breast exams and yearly mammogram. Maintain a healthy lifestyle, well balanced diet including Calcium 1,200 mg and Vitamin D 600 IU daily, and routine exercise. Vaginal atrophy, skin changes externally with aging, products available for comfort care reviewed with the Internet pictures. Contact the office with any postmenopausal bleeding. Patient verbalizes understanding and agrees to the plan of care. She was given opportunity to ask questions and all questions were answered to the best of my ability. RTO in 1 year for annual associate dean of women exam. This note is constructed using voice recognition software. While every effort has been made to ensure accuracy, cradle slide maker errors may have been included. Coding Level of Care Code Est Pt Prev Care >65y(54198) Diagnoses Encounter for well woman exam with routine gynecological exam Z01.419
[2025-07-02 14:56] VITALS: BP 110/64; BMI 28.0
--- OUTSIDE RECORDS SUMMARY | 2025-07-02 17:55 | XMS_ITS | Patient Health Record ---
Author Organization [facility] Address [address] [place] [address] Care Team Providers Care Education Rep Name Role Phone Rebecca (RETIRED) Spenser QUEVEDO Primary Care Provide r Jaden Landon Jr, Adilson Stanley [phone] Allergies Allergen (clinical drug ingredient) Drug/Non Drug Allergy documented on EMR Reaction Allergy Type Onset Date Status diphenhydramine Benadryl paradoxical jitteriness Drug Allergy Active Reason For Referral No Information Medications Medication SIG (Take, Route, Fr equency, Duration) Notes Start Date End Date Status Evening [place] Oil Active Aleve 220 MG 1 tablet [...] Status Risk Notes Problem Colon cancer screening (023540858) Colon cancer screening (V76.51) Active confirmed Problem Long-term drug therapy (455447754) Encounter for long-term (current) use of other high-risk medications (V58.69) Active confirmed Plan Of Treatment Future Test Test Name Order Date COLONOSCOPY 05/06/2015 Next Appt Details Provider Name:Adilson reed Jr, 09/17/2025 03:15:00 PM, [address], [address], [place], [address], Insurance Providers Payer Name Payer Address Payer Phone Subscriber Number Group Number Insured Name Patient Relationship to Insured Coverage Start Date Coverage End Date [facility] [address] [place], [place] [phone] [id number] KWABENA LEGER Self - patient is the insured Medical (General) History Medical History History ICD Code colonoscopy 02-24-2009 colon polyp depression degenerative joint disease Denies [place],DM,CVA,Lung disease,renal dise ase Surgical History Surgery Date(Month/Year) breast surgery for benign disease
== END 2025-07-02 15:37 | disposition home or self-care (01) ==
LOC: HO.HWS 14:45
PROVIDERS: PCP Internal Medicine; Visit Provider Advanced Practice Midwife
DX: Z01.419 Encounter for gynecological examination (general) (routine) without abnormal findings (principal)
CPT/HCPCS: 99397; 99459

== ENCOUNTER → 2025-07-02 14:44 | Outpatient (BNVA) | payer MEDICARE, SELFPAY | PROVIDERS: PCP Internal Medicine; Visit Provider Advanced Practice Midwife | DX: Z01.419 Encounter for gynecological examination (general) (routine) without abnormal findings (principal) | CPT/HCPCS: 99397 ==

== ENCOUNTER 2025-07-20 08:54 | Outpatient (REF) | payer MEDICARE, SELFPAY ==
--- OUTSIDE RECORDS SUMMARY | 2025-07-20 09:29 | XMS_ITS | Patient Health Record ---
Author Organization [facility] Address [address] [place] [address] Care Team Providers Care Child And Adolescent Therapist Name Role Phone Rebecca (RETIRED) Spenser QUEVEDO Primary Care Provide r Jaden Landon Jr, Adilson Stanley Allergies Allergen (clinical drug ingredient) Drug/Non Drug Allergy documented on EMR Reaction Allergy Type Onset Date Status diphenhydramine Benadryl paradoxical jitteriness Drug Allergy Active Reason For Referral No Information Medications Medication SIG (Take, Route, Frequency, Duration) Notes Start Date End Date Status Evening [place] Oil Active Aleve 220 MG Capsule 1 tablet as needed Orally prn Active MoviPrep 100 GM Solution Reconstituted as directed before colonoscopy Orally; Duration: 1 dose 05/06/2015 Active Ibuprofen 200 MG Tablet 1 tablet as need ed Orally prn Active Vitamin E 400 UNIT Capsule 1 capsule Ora lly Once a day Active Vitamin D 1000 UNIT Capsule 1 capsule Or ally Once a day Active Vitamin C 500 MG Tablet 1 tablet Orally Once a day Active Social History Social History Additional Details Category Social Info Options Details Miscellaneous: Marital status: Occupation: unemployed Problems Problem Type SNOMED Code ICD Code Onset Dates Problem Status W/U Status Risk Notes Problem Colon cancer screening (717493136) Colon cancer screening (V76.51) Active confirmed Problem Long-term drug therapy (509602289) Encounter for long-term (current) use of other high-risk medications (V58.69) Active confirmed Plan Of Treatment Future Test Test Name Order Date COLONOSCOPY 05/06/2015 Next Appt Details Provider Name:Adilson reed Jr, 09/17/2025 03:15:00 PM, [address], [address], [place], [address], Insurance Providers Payer Name Payer Address Payer Phone Subscriber Number Group Number Insured Name Patient Relationship to Insured Coverage Start Date Coverage End Date [facility] [address] [place] [address] [phone] [id number] KWABENA LEGER Self - patient is the insured Medical (General) History Medical History History ICD Code colonoscopy 02-24-2009 colon polyp depression degenerative joint disease Denies [place],DM,CVA,Lung disease,renal dise ase Surgical History Surgery Date(Month/Year) breast surgery for benign disease
--- OUTSIDE RECORDS SUMMARY | 2025-07-20 09:29 | XMS_ITS ---
Author Organization Unknown ENCOUNTERS Encounter Performer Location Date Diagnosis Diagnosis Status Emergency [address] [id number] *Note: Encounters from your own facility or health system may be excluded. Allergies, Adverse Reactions, Alerts Allergen Type Severity Identification Date dog dander drug allergy 3 20250104 horse dander drug allergy 3 20250104 Medications Name Date Quantity Days Supplied GPI Number
== END 2025-07-20 08:55 | disposition home or self-care (01) ==
LOC: HO.LNP 08:54
PROVIDERS: Visit Provider Physician Assistant
DX: R10.13 Epigastric pain (principal)
CPT/HCPCS: 87338